=== PATIENT | female | born 1950 | race Caucasian/White ===

== ENCOUNTER 2016-12-10 18:26 | Observation (INO) | payer MEDICARE ==
[~2016-12-10] VITALS: Ht 162.6 cm; Wt 67.5 kg
[~2016-12-10 18:26] MED LIST: DICY10CA52 PO; LEVO25TA7 PO; OMEP-29 PO; PRAV40TA46 PO
--- NOTE | 2016-12-10 18:27 | NUR ---
PROVIDER ORLANDO GREY IN ROOM W/ PT.
--- OUTSIDE RECORDS SUMMARY | 2016-12-10 18:28 | XMS REPORT | Referral Summary ---
Author Author [facility], Family Medicine Organization [facility] Address Unknown Phone Unavailable Care Team Providers Care Electric Furnace Operator Name Role Phone Ricardo Avelar Primary Care Physician [phone] Encounter VC Date(s): 05/05/15 - 05/05/15 [facility], [address] [place] [address] Discharge Diagnosis: Immunization due Discharge Disposition: 01-Home or Self Care Attending Physician: Coco Mckeon MD Admitting Physician: Coco Mckeon MD Vital Signs No data available for this section Problem List Condition Effective Dates Status Health Status Informant Anemia(Confirmed) Active Arthritis(Confirmed) Active Depression(Confirmed Active ) Gallbladder Active disease(Confirmed) Esophageal Active reflux(Confirmed) Hx of adenomatous 2013 Active colonic polyps, history of irritable bowel syndrome(Confirmed) Hyperlipidemia(Confi Active rmed) Hypothyroidism(Confi Active rmed) Irritable bowel Active syndrome (IBS)(Confirmed) Pure Active hypercholesterolemia (Confirmed) Allergies, Adverse Reactions, Alerts No Known Medication Allergies Medications aspirin 81 mg, Oral, Daily, 0 Refill(s) Start Date: 08/16/14 Status: Ordered biotin Oral, Daily, 0 Refill(s) Start Date: 08/16/14 Status: [facility] caps, Oral, Daily, 0 Refill(s) Start Date: 08/16/14 Status: Ordered omeprazole 20 mg oral delayed release capsule 20 mg 1 caps, Oral, Daily, # 90 caps, 2 Refill(s), Pharmacy: [facility], 1 caps Oral Daily Start Date: 10/26/15 Status: Ordered pravastatin 40 mg oral tablet 40 mg 1 tabs, Oral, Daily, # 90 tabs, 0 Refill(s), Pharmacy: [facility], 1 tabs Oral Daily Start Date: 09/06/15 Status: Ordered Synthroid 50 mcg (0.05 mg) oral tablet 50 mcg 1 tabs, Oral, Daily, # 90 tabs, 0 Refill(s), Pharmacy: [facility], 1 tabs Oral Daily Start Date: 10/24/15 Status: Ordered Results No data available for this section Immunizations Vaccine Date Refusal Reason tetanus/diphth/pertuss (Tdap) adult/adol 03/10/09 hepatitis B adult vaccine 05/05/15 hepatitis B adult vaccine 12/01/14 hepatitis B adult vaccine 11/03/14 influenza virus vaccine, inactivated 09/01/15 influenza virus vaccine, inactivated1 08/16/14 influenza virus vaccine, live 06/23/13 influenza virus vaccine, live 08/29/12 pneumococcal 13-valent conjugate vaccine 08/16/14 pneumococcal 23-polyvalent vaccine 10/24/15 zoster vaccine live 03/10/09 1Result Comment: [08/16/2014] see scanned doc Procedures Procedure Date Related Diagnosis Body Site Mammogram 04/06/15 Colonoscopy, Tubular adenoma x2, diverticula, 09/07/13 repeat in 3 years Bone densimetry normal 05/10/11 Appendectomy Cholecystectomy gall bladder Hysterectomy Thyroidectomy Tonsillectomy Social History Social History Type Response Smoking Status Former smoker Assessment and Plan No data available for this section
--- OUTSIDE RECORDS SUMMARY | 2016-12-10 18:28 | XMS REPORT | Referral Summary ---
Author Organization Unknown Address Unknown Phone Unavailable Care Team Providers Care Machine Puller Name Role Phone Dee Mckeon Primary Care Physician [phone] Encounter VC Date(s): 12/01/14 - 12/01/14 [facility], Ranjith, Family [address] [place] [id number] Discharge Diagnosis: Need for hepatitis B vaccination Discharge Disposition: Home or Self Care Attending Physician: Tyra Crespo APRN Admitting Physician: Tyra Crespo APRN Vital Signs No data available for this section Problem List Condition Effective Dates Status Health Status Informant Anemia(Confirmed) Active Arthritis(Confirmed) Active Depression(Confirmed Active ) Gallbladder Active disease(Confirmed) Esophageal Active reflux(Confirmed) Hx of adenomatous 2013 Active colonic polyps, history of irritable bowel syndrome(Confirmed) Hyperlipidemia(Confi Active rmed) Irritable bowel Active syndrome (IBS)(Confirmed) Pure Active hypercholesterolemia (Confirmed) Allergies, Adverse Reactions, Alerts No Known Medication Allergies Medications aspirin 81 mg, Oral, Daily, 0 Refill(s) Start Date: 08/16/14 Status: Ordered Bentyl 10 mg oral capsule 1 caps, Oral, QID, as needed Start Date: 08/11/14 Status: Ordered biotin Oral, Daily, 0 Refill(s) Start Date: 08/16/14 Status: Ordered [facility] caps, Oral, Daily, 0 Refill(s) Start Date: 08/16/14 Status: Ordered omeprazole 20 mg oral delayed release tablet 1 tabs, Oral, Daily, before a meal Special Instructions: before a meal Start Date: 08/11/14 Status: Ordered pravastatin 40 mg oral tablet 1 tabs, Oral, Daily, # 90 tabs, 3 Refill(s), Pharmacy: [facility], 1 tabs Oral Daily Start Date: 08/31/14 Status: Ordered Synthroid 25 mcg (0.025 mg) oral tablet 1 tabs, Oral, Daily, # 90 tabs, 3 Refill(s), Pharmacy: [facility], 1 tabs Oral Daily Start Date: 08/31/14 Status: Ordered Results No data available for this section Immunizations Vaccine Date Refusal Reason tetanus/diphth/pertuss (Tdap) adult/adol 03/10/09 hepatitis B adult vaccine 12/01/14 hepatitis B adult vaccine 11/03/14 influenza virus vaccine, inactivated1 08/16/14 influenza virus vaccine, live 06/23/13 influenza virus vaccine, live 08/29/12 pneumococcal 13-valent conjugate vaccine 08/16/14 zoster vaccine live 03/10/09 1Result Comment: [08/16/2014] see scanned doc Procedures Procedure Date Related Diagnosis Body Site Appendectomy Cholecystectomy Colonoscopy, Tubular adenoma x2, diverticula, repeat in 3 years gall bladder Hysterectomy Thyroidectomy Tonsillectomy Social History Social History Type Response Smoking Status Never smoker Assessment and Plan No data available for this section
--- OUTSIDE RECORDS SUMMARY | 2016-12-10 18:28 | XMS REPORT | Referral Summary ---
Author Organization Unknown Address Unknown Phone Unavailable Care Team Providers Care Community Organizer Name Role Phone Dee Mckeon Primary Care Physician [phone] Encounter VC Date(s): 11/03/14 - 11/03/14 [facility], Ranjith, Family [address] [place] [id number] Discharge Diagnosis: Need for hepatitis B vaccination [...] Daily, # 90 tabs, 3 Refill(s), Pharmacy: [facility], 1 tabs Oral Daily Start Date: 08/31/14 Status: Ordered Synthroid 25 mcg (0.025 mg) oral tablet 1 tabs, Oral, Daily, # 90 tabs, 3 Refill(s), Pharmacy: [facility], 1 tabs Oral Daily Start Date: 08/31/14 Status: Ordered Results No data available for this section Immunizations Vaccine Date Refusal Reason tetanus/diphth/pertuss (Tdap) adult/adol 03/10/09 hepatitis B adult vaccine 11/03/14 influenza virus [...]
--- OUTSIDE RECORDS SUMMARY | 2016-12-10 18:29 | XMS REPORT | Referral Summary ---
Author Author [facility], Family Medicine Organization [facility] Address Unknown Phone Unavailable Care Team Providers Care Bark Grinder Name Role Phone Ricardo Avelar Primary Care Physician [phone] Encounter Date(s): 09/04/16 - 09/04/16 [facility], [address] [place] [address]- Discharge Diagnosis: Hyperlipidemia Discharge Diagnosis: Esophageal reflux Discharge Diagnosis: Hypothyroidism Discharge Diagnosis: Encounter for immunization Discharge Diagnosis: Hyperlipidemia Discharge Disposition: 01-Home or Self Care Attending Physician: Lisa Avelar DO Admitting Physician: Lisa Avelar DO Vital Signs Most recent to 1 oldest [Reference Range]: Peripheral Pulse 80 bpm Rate [60-100 bpm] (09/04/16 8:39 AM) Blood Pressure 134/90 mmHg [90-140/60-90 mmHg] (09/04/16 8:39 AM) SpO2 96 % (09/04/16 8:39 AM) Problem List Condition Effective Dates Status Health [...] 0 Refill(s) Start Date: 08/16/14 Status: Ordered ferrous sulfate Oral, Daily, 0 Refill(s) Start Date: 09/04/16 Status: Ordered omeprazole 20 mg oral delayed release capsule 20 mg 1 caps, Oral, Daily, # 90 caps, 3 Refill(s), Pharmacy: [facility], 1 caps Oral Daily Start Date: 09/04/16 Status: Ordered simvastatin 40 mg oral tablet 40 mg 1 tabs, Oral, Bedtime (once a day), # 90 tabs, 1 Refill(s), Pharmacy: [facility], 1 tabs Oral Bedtime (once a day) Start Date: 09/04/16 Status: Ordered Synthroid 50 mcg (0.05 mg) oral tablet 50 mcg 1 tabs, Oral, Daily, # 90 tabs, 3 Refill(s), Pharmacy: [facility], 1 tabs Oral Daily Start Date: 09/04/16 Status: Ordered Results Chemistry Most recent to 1 oldest [Reference Range]: Sodium Lvl [135-144 143 mEq/L mEq/L] (09/04/16 9:11 AM) Potassium Lvl 4.3 mEq/L [3.5-5.2 mEq/L] (09/04/16 9:11 AM) Chloride [99-111 109 mEq/L mEq/L] (09/04/16 9:11 AM) CO2 [22-31 mEq/L] 24 mEq/L (09/04/16 9:11 AM) AGAP [3-20] 10 (09/04/16 9:11 AM) BUN [10-20 mg/dL] 11 mg/dL (09/04/16 9:11 AM) Glucose Lvl [70-99 103 mg/dL mg/dL] *HI* (09/04/16 9:11 AM) Creatinine Lvl 0.72 mg/dL [0.57-1.11 mg/dL] (09/04/16 9:11 AM) eGFR [>60 mL/min] >60 mL/min 1 (09/04/16 9:11 AM) Calcium Lvl 9.1 mg/dL [8.9-10.5 mg/dL] (09/04/16 9:11 AM) Albumin Lvl [3.4-4.8 3.9 gm/dL gm/dL] (09/04/16 9:11 AM) Total Protein 6.3 gm/dL [6.0-7.6 gm/dL] (09/04/16 9:11 AM) Globulin [1.8-4.0 2.4 gm/dL gm/dL] (09/04/16 9:11 AM) ALT [0-55 U/L] 19 U/L (09/04/16 9:11 AM) AST [5-34 U/L] 12 U/L (09/04/16 9:11 AM) Alk Phos [40-150 90 U/L U/L] (09/04/16 9:11 AM) Bili Total [0.2-1.2 0.4 mg/dL mg/dL] (09/04/16 9:11 AM) 1Result Comment: Multiply eGFR results by 1.21 for race. Immunizations Vaccine Date Refusal Reason tetanus/diphth/pertuss (Tdap) adult/adol 03/10/09 hepatitis B adult vaccine 05/05/15 hepatitis B adult vaccine 12/01/14 hepatitis B adult vaccine 11/03/14 influenza virus vaccine, inactivated 09/04/16 influenza virus vaccine, inactivated 09/01/15 influenza virus [...] Smoking Status Former smoker Assessment and Plan Extracted from: Title: Ambulatory Patient Education Author: Lisa Avelar DO Date: Preventive Medicine Fat and Cholesterol Restricted Diet High levels of fat and cholesterol in your blood may lead to various health problems, such as diseases of the heart, blood vessels, gallbladder, liver, and pancreas. Fats are concentrated sources of energy that come in various forms. Certain types of fat, including saturated fat, may be harmful in excess. Cholesterol is a substance needed by your body in small amounts. Your body makes all the cholesterol it needs. Excess cholesterol comes from the food you eat. When you have high levels of cholesterol and saturated fat in your blood, health problems can develop because the excess fat and cholesterol will gather along the triana of your blood vessels, causing them to narrow. Choosing the right foods will help you control your intake of fat and cholesterol. This will help keep the levels of these substances in your blood within normal limits and reduce your risk of disease. WHAT IS MY PLAN? Your health care provider recommends that you: Get no more than % of the total calories in your daily diet from fat. Limit your intake of saturated fat to less than % of your total calories each day. Limit the amount of cholesterol in your diet to less than mg per day. WHAT TYPES OF FAT SHOULD I CHOOSE? Choose healthy fats more often. Choose monounsaturated and polyunsaturated fats, such as olive and canola oil, flaxseeds, walnuts, almonds , and seeds. Eat more omega-3 fats. Good choices include salmon, mackerel, sardines, tuna, flaxseed oil, and ground flaxseeds. Aim to eat fish at least two times a week. Limit saturated fats. Saturated fats are primarily found in animal products, such as meats, butter, and cream. Plant sources of saturated fats include palm oil, palm kernel oil, and coconut oil. Avoid foods with partially hydrogenated oils in them. These contain trans fats. Examples of foods that contain trans fats are stick margarine, some tub margarines, cookies, crackers, and other baked goods. WHAT GENERAL GUIDELINES DO I NEED TO FOLLOW? These guidelines for healthy eating will help you control your intake of fat and cholesterol: Check food labels carefully to identify foods with trans fats or high amounts of saturated fat. Fill one half of your plate with vegetables and green salads. Fill one fourth of your plate with whole grains. Look for the word "whole " as the first word in the ingredient list. Fill one fourth of your plate with lean protein foods. Limit fruit to two servings a day. Choose fruit instead of juice. Eat more foods that contain soluble fiber. Examples of foods that contain this type of fiber are apples, broccoli, carrots, beans, peas, and barley. Aim to get 2030 g of fiber per day. Eat more home-cooked food and less restaurant, buffet, and fast food. Limit or avoid alcohol. Limit foods high in starch and sugar. Limit fried foods. Cook foods using methods other than frying. Baking, boiling, grilling, and broiling are all great options. Lose weight if you are overweight. Losing just 510% of your initial body weight can help your overall health and prevent diseases such as diabetes and heart disease. WHAT FOODS CAN I EAT? Grains Whole grains, such as whole wheat or whole grain breads, crackers, cereals, and pasta. Unsweetened oatmeal, bulgur, barley, quinoa, or brown rice. [place] or whole wheat flour tortillas. Vegetables Fresh or frozen vegetables (raw, steamed, roasted, or grilled). Green salads. Fruits All fresh, canned (in natural juice), or frozen fruits. Meat and Other Protein Products Ground beef (85% or leaner), grass-fed beef, or beef trimmed of fat. Skinless chicken or turkey. Ground chicken or turkey. Pork trimmed of fat. All fish and seafood. Eggs. Dried beans, peas, or lentils. Unsalted nuts or seeds. Unsalted canned or dry beans. Dairy Low-fat dairy products, such as skim or 1% milk, 2% or reduced-fat cheeses, low- fat ricotta or cottage cheese, or plain low-fat yogurt. Fats and Oils Tub margarines without trans fats. Light or reduced-fat mayonnaise and salad dressings. Avocado. [place], canola, sesame, or safflower oils. Natural peanut or almond butter (choose ones without added sugar and oil). The items listed above may not be a complete list of recommended foods or beverages. Contact your dietitian for more options. WHAT FOODS ARE NOT RECOMMENDED? Grains White bread. White pasta. White rice. Cornbread. Bagels, pastries, and croissants. Crackers that contain trans fat. Vegetables White potatoes. [place]. Creamed or fried vegetables. Vegetables in a cheese sauce. Fruits Dried fruits. Canned fruit in light or heavy syrup. Fruit juice. Meat and Other Protein Products Fatty cuts of meat. Ribs, chicken wings, ribeiro, sausage, bologna, salami, chitterlings, fatback, hot dogs, bratwurst, and packaged luncheon meats. Liver and organ meats. Dairy Whole or 2% milk, cream, [id number], and cream cheese. Whole milk cheeses. Whole-fat or sweetened yogurt. Full-fat cheeses. Nondairy creamers and whipped toppings. Processed cheese, cheese spreads, or cheese curds. Sweets and Desserts [place] syrup, sugars, honey, and molasses. Candy. Jam and jelly. Syrup. Sweetened cereals. Cookies, pies, cakes, donuts, muffins, and ice cream. Fats and Oils Butter, stick margarine, lard, shortening, ghee, or ribeiro fat. Coconut, palm kernel, or palm oils. Beverages Alcohol. Sweetened drinks (such as sodas, lemonade, and fruit drinks or punches) . The items listed above may not be a complete list of foods and beverages to avoid. Contact your dietitian for more information. This information is not intended to replace advice given to you by your health care provider. Make sure you discuss any questions you have with your health care provider. Document Released: 09/16/2006 Document Revised: 10/07/2015 Document Reviewed: [employer] Patient Education 2016 [employer] No follow up information was provided. Extracted from: Title: Office Visit Note Author: Lisa Avelar DO Date: 09/04/16 Assessment/Plan Encounter for immunization, Need for influenza vaccination Given today. Ordered: Office Visit Level 4 Est 32620 Esophageal reflux Continue current regimen. Ordered: Office Visit Level 4 Est 09846 Hyperlipidemia, Hyperlipidemia, Hyperlipidemia CMP today,we will try her on simvastatin 40 mg to see if she tolerates this better than pravastatin. She'll return to clinic in 6 months for reevaluation and lab work. Ordered: Comprehensive Metabolic Panel Office Visit Level 4 Est 48008 Hypothyroidism Not yet due for lab work, we will repeat when she returns to clinic in 6 months. Ordered: Office Visit Level 4 Est 71364
--- OUTSIDE RECORDS SUMMARY | 2016-12-10 18:29 | XMS REPORT | Referral Summary ---
Author Author [facility] Organization [facility] Address Unknown Phone Unavailable Care Team Providers Care Strategy Associate Name Role Phone Ricardo Avelar Primary Care Physician [phone] Encounter Date(s): 09/01/15 - 09/01/15 [facility], [address] [place] [id number] Discharge Diagnosis: High cholesterol Discharge Diagnosis: Encounter for Medicare annual wellness exam Discharge Diagnosis: Hypothyroidism Discharge Diagnosis: Encounter for immunization Discharge Disposition: 01-Home or Self Care Attending Physician: Jenny Tian APRN Admitting Physician: Jenny Tian APRN Vital Signs Most recent to 1 oldest [Reference Range]: Temperature Tympanic 36.7 degC [36.6-38.1 degC] (09/01/15 9:33 AM) Peripheral Pulse 76 bpm Rate [60-100 bpm] (09/01/15 9:33 AM) Blood Pressure 106/68 mmHg [90-140/60-90 mmHg] (09/01/15 9:33 AM) SpO2 97 % (09/01/15 9:33 AM) Problem List Condition Effective Dates Status [...] 0 Refill(s) Start Date: 08/16/14 Status: Ordered [facility] caps, Oral, Daily, 0 Refill(s) Start Date: 08/16/14 Status: Ordered omeprazole 20 mg oral delayed release tablet 20 mg 1 tabs, Oral, Daily, before a meal, # 90 tabs, 3 Refill(s), [facility], 1 tabs Oral Daily,Instr:before a meal Start Date: 03/14/15 Status: Ordered pravastatin 40 mg oral tablet 1 tabs, Oral, Daily, # 90 tabs, 3 Refill(s), Pharmacy: [facility], 1 tabs Oral Daily Start Date: 08/31/14 Status: Ordered Synthroid 25 mcg (0.025 mg) oral tablet 1 tabs, Oral, Daily, # 90 tabs, 3 Refill(s), Pharmacy: [facility], 1 tabs Oral Daily Start Date: 08/31/14 Status: Ordered Results Chemistry Most recent to 1 oldest [Reference Range]: Sodium Lvl [135-144 141 mEq/L mEq/L] (09/01/15 10:16 AM) Potassium Lvl 4.1 mEq/L [3.5-5.2 mEq/L] (09/01/15 10:16 AM) Chloride [99-111 109 mEq/L mEq/L] (09/01/15 10:16 AM) CO2 [22-31 mEq/L] 24 mEq/L (09/01/15 10:16 AM) AGAP [3-20] 8 (09/01/15 10:16 AM) BUN [10-20 mg/dL] 12 mg/dL (09/01/15 10:16 AM) Glucose Lvl [70-99 100 mg/dL mg/dL] *HI* (09/01/15 10:16 AM) Creatinine Lvl 0.74 mg/dL [0.57-1.11 mg/dL] (09/01/15 10:16 AM) eGFR [>60 mL/min] >60 mL/min 1 (09/01/15 10:16 AM) Calcium Lvl 9.2 mg/dL [8.9-10.5 mg/dL] (09/01/15 10:16 AM) Albumin Lvl [3.4-4.8 3.9 gm/dL gm/dL] (09/01/15 10:16 AM) Total Protein 6.5 gm/dL [6.2-8.1 gm/dL] (09/01/15 10:16 AM) Globulin [1.8-4.0 2.6 gm/dL gm/dL] (09/01/15 10:16 AM) ALT [0-55 U/L] 25 U/L (09/01/15 10:16 AM) AST [5-34 U/L] 15 U/L (09/01/15 10:16 AM) Alk Phos [40-150 87 U/L U/L] (09/01/15 10:16 AM) Bili Total [0.2-1.2 0.4 mg/dL mg/dL] (09/01/15 10:16 AM) Chol [0-199 mg/dL] 248 mg/dL *HI* (09/01/15 10:16 AM) Trig [0-149 mg/dL] 155 mg/dL *HI* (09/01/15 10:16 AM) HDL [40-84 mg/dL] 44 mg/dL (09/01/15 10:16 AM) LDL [0-130 mg/dL] 173 mg/dL *HI* (09/01/15 10:16 AM) VLDL Cholesterol 31 mg/dL [0-28 mg/dL] *HI* (09/01/15 10:16 AM) Cardiac Risk 5.6 [0.0-5.0] *HI* (09/01/15 10:16 AM) T3 Free [1.7-3.7 2.5 pg/mL pg/mL] (09/01/15 10:16 AM) TSH with Reflex Free 2.56 T4 [0.35-4.94] (09/01/15 10:16 AM) 1Result Comment: Multiply eGFR results by [...] Date Related Diagnosis Body Site Mammogram 04/06/15 Appendectomy Cholecystectomy Colonoscopy, Tubular adenoma x2, diverticula, repeat in 3 years gall bladder Hysterectomy Thyroidectomy Tonsillectomy Social History Social History Type Response Smoking Status Never smoker Assessment and Plan No data available for this section
--- OUTSIDE RECORDS SUMMARY | 2016-12-10 18:29 | XMS REPORT | Referral Summary ---
Author Author [facility] Organization [facility] Address Unknown Phone Unavailable Care Team Providers Care Computer Engineering Technician Name Role Phone Ricardo Avelar Primary Care Physician [phone] Encounter VC Date(s): 10/24/15 - 10/24/15 [facility] [address] [place] [id number] Discharge Diagnosis: Hypothyroidism Discharge Diagnosis: Esophageal reflux Discharge Diagnosis: Hyperlipidemia Discharge Disposition: 01-Home or Self Care Attending Physician: Lisa Aevlar DO Admitting Physician: Lisa Avelar DO Vital Signs Most recent to 1 oldest [Reference Range]: Peripheral Pulse 84 bpm Rate [60-100 bpm] (10/24/15 9:57 AM) Respiratory Rate 18 br/min [14-20 br/min] (10/24/15 9:57 AM) Blood Pressure 140/80 mmHg [90-140/60-90 mmHg] (10/24/15 9:57 AM) SpO2 97 % (10/24/15 9:57 AM) Problem List Condition Effective Dates Status [...] Daily, before a meal, # 90 tabs, 0 Refill(s), Pharmacy: [facility], 1 tabs Oral Daily,Instr:before a meal Start Date: 10/24/15 Status: Ordered pravastatin 40 mg oral tablet 40 mg 1 tabs, Oral, Daily, # 90 tabs, 0 Refill(s), Pharmacy: [facility], 1 tabs Oral Daily Start Date: 09/06/15 Status: Ordered Synthroid 50 mcg (0.05 mg) oral tablet 50 mcg 1 tabs, Oral, Daily, # 90 tabs, 0 Refill(s), Pharmacy: [facility], 1 tabs Oral Daily [...] smoker Assessment and Plan Extracted from: Title: Office Visit Note Author: Lisa Avelar DO Date: 10/24/15 Assessment/Plan Esophageal reflux Advised patient that if she has been tried off of omeprazoleand failedit is certainly reasonable to continue this medication. Patient voiced understanding. Ordered: Office Visit Level 4 Est 22848 Hyperlipidemia We will get an FLP in 6 weeks when we get a thyroid function test. Ordered: Lipid Panel Office Visit Level 4 Est 19813 Hypothyroidism TSH in 6 weeks after increased to 50 g. I did discuss with patient that if this is too high we could go to a hybrid of 25 and 50 g doses alternating to see if this gets her better control. Return to clinic will be based on results. Ordered: Office Visit Level 4 Est 99698 TSH with Reflex Free T4 Immunization due Orders: levothyroxine, 50 mcg 1 tabs, Oral, Daily, # 90 tabs, 0 Refill(s), Pharmacy: [facility], 1 tabs Oral Daily omeprazole, 20 mg 1 tabs, Oral, Daily, before a meal, # 90 tabs, 0 Refill(s), Pharmacy: [facility], 1 tabs Oral Daily,Instr:before a meal
--- NOTE | 2016-12-10 18:41 | ERPDOC ---
Departure Disposition Decision Date: Dec 10, 2016 Disposition Decision Time: 20:27 (VANIA PARSONS APRN) Disposition: 02 TO OBS [facility] Impression Impression (VANIA PARSONS APRN) Impression: Primary Impression: Chest pain Chest pain type: unspecified Qualified Codes: R07.9 - Chest pain, unspecified Severity: Moderate (VANIA PARSONS APRN) Condition: Stable Seen By: Mid-level only (VANIA PARSONS APRN) Referrals: GEORGI HORNE MD (PCP) Problems/Meds/Labs Reviewed?: Yes Medications reviewed and manag: Yes (VANIA PARSONS APRN) Follow up care ordered?: Yes Mental Status: Alert (VANIA PARSONS APRN) HPI - Chest Pain General Stated Complaint: CHEST PAIN Time Seen by Provider: 18:27 Source: patient Exam Limitations: no limitations (VANIA PARSONS APRN) Time Seen by Provider: 18:27 (REBECCA DEVINE MD) HPI - Chest Pain Initial Comments She was at home today and was cooking dinner. Had onset of left arm pain that radiates up to her left jaw. She was feeling like her heart was pounding and like she was going to pass out. This lasted for about 15 minutes and she feels like all her symptoms are gone at this time. She did feel a little diaphoretic with this episode as well. She has had a stress test in the past but it was several years ago. Has never had a heart cath. Occurred At: home Onset/Timing: Rapid Duration: 1/2 hour Activities at Onset/Context: other (While cooking dinner) Location: other (Left arm and jaw) Quality: sharp Associated Symptoms: diaphoresis, dizziness, nausea/vomiting (nauseated earlier today), DENIES: abdominal pain, back pain, edema, fast HR, fatigue, fever/chills, headache, heartburn, irregular HR, rash, shortness of breath, slow HR, swelling/lump in chest, syncope, weakness Chest Pain Radiation: jaw, arms (left arm) Nitro Today/Relief: no nitro taken today Aspirin Treatment Today: unknown Prior Chest Pain/Cardiac Jluis: stress test Hx of Similar Symptoms: No (VANIA PARSONS APRN) Allergies: Coded Allergies: No Known Allergies (Unverified , 09/04/13) Past History Past Medical History Metabolic: hypercholesterolemia, hypothyroidism (NOLD,VANIA N ROLL FILLER) Family History Family History: Negative (NOLD,VANIA N ROLL FILLER) Vaccines Hx Influenza Vaccination: Yes (FALL 2012) Hx Pneumococcal Vaccination: No (NOLD,VANIA N ROLL FILLER) Social History Smoking Status: Never smoker Substance Use Type: does not use Alcohol Intake: none (NOLD,VANIA N ROLL FILLER) Review of Systems Constitutional Constitutional: DENIES: chills, dizziness, fatigue, fever, weakness (NOLD, VANIA N ROLL FILLER) Eyes Vision: DENIES: blurring, double vision (NOLD,VANIA N ROLL FILLER) ENMT Ears: DENIES: drainage, pain Sinuses: DENIES: congestion, rhinorrhea Mouth/Throat: DENIES: painful swallowing, scratchy throat, sore throat (NOLD, VANIA N ROLL FILLER) Cardiovascular Cardiac: DENIES: chest pain, dyspnea on exertion, orthopnea Rhythm/Rate: DENIES: irregular beat, palpitations Vascular: DENIES: pedal edema, unilateral swelling (NOLD,VANIA N ROLL FILLER) Pulmonary Respiratory: DENIES: cough, dyspnea, sputum, tachypnea (NOLD,VANIA N ROLL FILLER) GI Upper Abdomen: nausea, DENIES: pain, vomiting Lower Abdomen: DENIES: constipation, diarrhea, pain (NOLD,VANIA N ROLL FILLER) Integumentary Skin: DENIES: rash (NOLD,VANIA N ROLL FILLER) Neurological General: DENIES: headache, numbness, tingling, weakness (NOLD,VANIA N ROLL FILLER) Physical Exam General General Nourishment: well nourished, well developed, appears stated age, no acute distress, adult General Body Habitus: well groomed (NOLD,VANIA N ROLL FILLER) Vitals and Pain First Documented Vital Signs Date Time Temp Pulse Resp B/P Pulse Ox O2 Delivery O2 Flow Rate FiO2 12/10/16 18:29 98.0 78 20 170/100 95 12/10/16 18:45 Room Air (REBECCA DEVINE MD) Vitals and Pain Weight: Kilograms: Height (feet): Height (inches): Triage Pain Scale: (NODULCE MARIA,VANIA N ROLL FILLER) RN VS reviewed by Provider: Yes (VANIA PARSONS APRN) Normal Exams: Neck: Full range of motion, without adenopathy, JVD, bruits or thyromegaly Chest/Resp: Clear all lawler, with good airflow, and symmetry bilaterally CV: Regular rate and rhythm, without murmur or gallop, Pulses 2+ all extremities, capillary refill, <2 seconds all ext., no pedal edema noted Abdomen: Bowel sounds positive, soft, non-tender, non-distended, no hepatosplenomegaly, masses or bruits noted Lymphatic: No lymphadenopathy, or lymphedema noted Integumentary: No rashes, hives, or bruising noted Neurologic: Patient is alert, and oriented Psychiatric: Patient exhibits, appropriate attention, emotion and affect (VANIA PARSONS APRN) Differential Diagnoses Considering: Acute ID, Anxiety/Panic, Angina, Costochondritis, GERD, Pneumonia , Muscle Spasm (VANIA PARSONS APRN) Progress Results/Orders Orders Procedure Category Date Status Time EKG EKG 12/10/16 Taken Cbc W/Auto LAB 12/10/16 Complete Diff-Reflex Manual Bmp - Basic Metabolic LAB 12/10/16 Complete Panel Troponin I W LAB 12/10/16 Complete Hemolysis Index Iv Lock (Ed Only) EDM 12/10/16 Transmitted 18:37 Chest 1 View RAD 12/10/16 Taken Orthostatic Bp/Pulse EDM 12/10/16 Transmitted 18:37 Ua, Dip Wreflex LAB 12/10/16 Complete Microsc & Manager Produce 20:09 Telemetry [facility] 12/10/16 In Process 20:21 Normal Saline (Normal PHA 12/10/16 In Process Saline Iv) 20:30 Place In Facility As: ADMIT 12/10/16 Transmitted 20:26 Troponin I W LAB 12/11/16 Complete Hemolysis Index 01:00 Troponin I W LAB 12/11/16 Logged Hemolysis Index 07:00 Cardiac Diet DIET 12/11/16 Transmitted Breakfast Lipid Panel - Batch LAB 12/11/16 Complete 01:00 Orthostatic Vitals PATRIA 12/11/16 In Process Signs 00:19 Tsh - Thyroid Stim LAB 12/11/16 In Process Hormone 01:00 Magnesium LAB 12/11/16 In Process 01:00 Acetaminophen PHA 12/11/16 Logged (Tylenol Regular 00:45 Mc Vital Signs, Per PATRIA 12/11/16 In Process Policy 00:00 Nitroglycerin PHA 12/11/16 Logged (Nitrostat) 01:00 Ondansetron Inj PHA 12/11/16 Logged (Zofran) 01:00 Compression Type Scd/ PATRIA 12/11/16 In Process Jose Juan Hose 01:00 (REBECCA DEVINE MD) Lab Results Laboratory Tests Test 12/10/16 18:50 12/10/16 20:11 12/11/16 00:42 White Blood Count 5.0T/MM3 Red Blood Count 4.61M/MM3 Hemoglobin 12.4GM/DL Hematocrit 39.4% Mean Corpuscular Volume 85.5UM3 Mean Corpuscular Hemoglobin 26.9UUG Mean Corpuscular Hemoglobin Concent 31.5GM/DL RDW Standard Deviation 59.6FL Platelet Count 242T/MM3 Mean Platelet Volume 10.7UM3 Immature Granulocyte % (Auto) 0.0% Neutrophils (%) (Auto) 51.7% Lymphocytes (%) (Auto) 36.3% Monocytes (%) (Auto) 9.0% Eosinophils (%) (Auto) 2.2% Basophils (%) (Auto) 0.8% Absolute Immature Granulocyte (auto 0.00T/MM3 Absolute Neutrophils (auto) 2.6T/MM3 Absolute Lymphocytes (auto) 1.8T/MM3 Absolute Monocytes (auto) 0.5T/MM3 Absolute Eosinophils (auto) 0.1T/MM3 Absolute Basophils (auto) 0.0T/MM3 Turbidity < 20 Sodium Level 144MEQ/L Potassium Level 4.2MEQ/L Chloride Level 109MEQ/L Carbon Dioxide Level 24MEQ/L Anion Gap 11MEQ/L Blood Urea Nitrogen 12.0MG/DL Creatinine 0.6MG/DL Glomerular Filtration Rate Calc 99 BUN/Creatinine Ratio 20RATIO Glucose Level 99MG/DL Calculated Osmolality 277MOSM/KG Calcium Level 8.7MG/DL Icterus Index < 2 Troponin I < 0.012ng/ml < 0.012ng/ml Chemistry Specimen Hemolysis 105 < 15 Urine Collection Type Cleancatch-midstream Urine Color Yulia Urine Turbidity Clear Urine pH 6.5 Urine Specific [place] 1.010 Urine Protein Negative Urine Glucose (UA) Negative Urine Ketones Negative Urine Blood Trace-intact Urine Nitrite Negative Urine Bilirubin Negative Urine Urobilinogen 0.2EU/DL Urine Leukocyte Esterase Trace Urinalysis Comment Microscopic not ind. Magnesium Level 2.0MG/DL Triglycerides Level 164MG/DL Cholesterol Level 223MG/DL LDL Cholesterol, Calculated 151.2 VLDL Cholesterol 32.8MG/DL HDL Cholesterol Direct 39MG/DL Cholesterol/HDL Ratio 5.7RATIO Thyroid Stimulating Hormone (TSH) Pending (REBECCA DEVINE MD) Progress Progress CBC, BMP, and troponin today are normal. Chest xray is clear. She did get up to the bathroom and had return of the dizziness but otherwise has continued to deny symptoms while in [place]. She does have a sister who had bypass surgery in her 30s. Is a non smoker. She has a HEART score for major cardiac event of 4 which places her at moderate risk. Did discuss findings with Mike with Dr Saavedra. Given her symptoms and the onset of symptoms within the last 2 hours will admit for serial troponin. (VANIA PARSONS APRN) VANIA PARSONS APRN Dec 10, 2016 18:41 REBECCA DEVINE MD Dec 11, 2016 04:38
[2016-12-10] MEDS ORDERED: MULT1TAB69 PO (18:45)
[2016-12-10] MEDS ORDERED: LEVO50TA11 PO (18:45)
[2016-12-10] MEDS ORDERED: OMEP20CA10 PO (18:45)
[2016-12-10] MEDS ORDERED: ASPI1TAB72 PO (18:45)
[2016-12-10] MEDS ORDERED: ASPI-557 PO (18:45)
[2016-12-10] MEDS ORDERED: FERR325C PO (18:45)
--- NOTE | 2016-12-10 19:01 | NUR ---
XRAY XRAY IN ROOM W/ PT.
[2016-12-10 19:18] LABS: BASOPHILS % (AUTO) 0.8 % (0-2); EOSINOPHILS # (AUTO) 0.1 T/MM3 (0-0.5); EOSINOPHILS % (AUTO) 2.2 % (0-4); HCT - HEMATOCRIT 39.4 % (36-46); HGB - HEMOGLOBIN 12.4 GM/DL (12-16); LYMPHOCYTES # (AUTO) 1.8 T/MM3 (1-4.8); LYMPHOCYTES % (AUTO) 36.3 % (23-45); MEAN CORPUSCULAR HGB 26.9 UUG (26-34); MEAN CORPUSCULAR HGB CONC(MCHC 31.5 GM/DL (31-37); MEAN CORPUSCULAR VOLUME 85.5 UM3 (80-100); MEAN PLATELET VOLUME 10.7 UM3 (9.4-12.4); MONOCYTES # (AUTO) 0.5 T/MM3 (0-0.8); NEUTROPHILS #(AUTO)-ABSOLUTE 2.6 T/MM3 (1.8-7.7); NEUTROPHILS % (AUTO) 51.7 % (33-66); RED BLOOD COUNT 4.61 M/MM3 (4.00-5.20)
[2016-12-10 19:28] LABS: ANION GAP 11 MEQ/L (5-15); BUN/CREATININE RATIO 20 RATIO (6-26); CALCIUM 8.7 MG/DL (8.4-10.2); CHLORIDE 109 MEQ/L (98-107); CO2 - CARBON DIOXIDE 24 MEQ/L (22-30); CREATININE 0.6 MG/DL (0.7-1.2); GLOMERULAR FILTRATION RATE 99; GLUCOSE 99 MG/DL (65-110); POTASSIUM 4.2 MEQ/L (3.6-5); SODIUM 144 MEQ/L (134-144)
[2016-12-10 20:17] LABS: BLOOD, URINE TRACE-INTACT (NEGATIVE); COLOR,URINE AMBER (YELLOW); LEUKOCYTE ESTERASE ,URINE TRACE (NEGATIVE); NITRITE,URINE NEGATIVE (NEGATIVE); UROBILINOGEN,URINE 0.2 EU/DL (NORMAL)
[2016-12-10] MEDS ORDERED: NORMAL SALINE 1,000 ML IV ONE (20:30)
[2016-12-10 20:45] VITALS: Ht 162.6 cm; Wt 67.5 kg
--- NOTE | 2016-12-10 20:52 | NUR ---
REPORT REPORT GIVEN TO VEENA SHAW RM 145.
--- NOTE | 2016-12-10 21:08 | NUR ---
ADMIT: PT ADMITTED BY CART TO ROOM 145 ACCOMPANIED BY SIGNIFICANT OTHER, ON RA, DENIES SOA OR PAIN, VS STABLE. UP TO BATHROOM WITH STANDBY ASSIST. WILL CONTINUE TO MONITOR.
[2016-12-10 21:15] VITALS: BP 147/78; PULSE 74; RESP 14; TEMP 98.6; O2SAT 98
[2016-12-10 21:35] VITALS: PULSE 67
--- NOTE | 2016-12-10 21:44 | NUR ---
DEPART PT LEFT ER AND TRANSFERED ADMIT TO MEDICAL UNIT ROOM 145 ALERT, VIA CART, IV NS 100/HR, VS CHARTED IN NO ACUTE DISTRESS. AND PT CARE XFERED TO VEENA SHAW W/O CHANGE.
[2016-12-10 23:42] VITALS: BP 142/85; PULSE 67; RESP 10; TEMP 97.4; O2SAT 98
[2016-12-11] MEDS ORDERED: ACETAMINOPHEN 325 MG TABLET PO PRN (00:45)
[2016-12-11 00:46] VITALS: BP 138/89; PULSE 68
[2016-12-11 00:47] VITALS: BP 161/90; PULSE 72
[2016-12-11 00:49] VITALS: BP 154/89; PULSE 75
[2016-12-11] MEDS ORDERED: NITROGLYCERIN 0.4 MG SUBLINGUAL TABLET SL PRN (01:00)
[2016-12-11] MEDS ORDERED: ONDANSETRON 4mg/2ml INJECTION IM PRN (01:00)
--- NOTE | 2016-12-11 02:12 | NUR ---
ORDERS: PT HAD NO ORDERS IN EXCEPT FOR NORMAL SALINE IN THE EMAR. HAD DR. MALLORY'S NIGHT STAFF PAGED (MARK ANTHONY LONG). NO CALL BACK, SO HAD HER PAGED AGAIN, AND WAS ABLE TO SPEAK WITH MARK ANTHONY LONG. WE DISCUSSED THE PT AND MERCEDES GAVE ME ORDERS TO PUT IN, WHICH I DID (SEE ORDER HISTORY).
[2016-12-11 04:04] LABS: LDL CHOLESTEROL,CALCULATED 151.2 (66-159); RISK FACTOR 5.7 RATIO (0-4.0); VLDL CHOLESTEROL 32.8 MG/DL (0-28)
[2016-12-11 04:45] LABS: THYROID STIM HORMONE-TSH 2.66 MIU/L (0.47-4.68)
--- NOTE | 2016-12-11 06:18 | NUR ---
SHIFT SUMMARY: PT A&OX3, PLEASANT, AND COOPERATIVE. PT 'S SIGNIFICANT OTHER CAME WITH HER ROOM WHEN ARRIVING TO THE MEDICAL UNIT, HE THEN LEFT AFTER AN HOUR. PT SLEPT WELL DURING THE NIGHT, ON RA, DENIES N/V, DENIES PAIN. PT IS UP TO THE BATHROOM WITH 1-STAND BY ASSIST PT STATES AMBULATING MAKES HER DIZZY. CALL LIGHT WITHIN REACH, BED ALARM ON..
[2016-12-11 07:19] VITALS: BP 141/78; PULSE 63; RESP 14; TEMP 96.3; O2SAT 98
[2016-12-11 07:24] VITALS: PULSE 62
--- NOTE | 2016-12-11 07:38 | DI ---
EXAM: CHEST 1 VIEW LOCATION OF DICTATION: [place] HISTORY: ITS.REASON: chest pain COMPARISON: No prior studies available for comparison. FINDINGS: The heart size is normal. The mediastinal configuration is within normal limits. A moderate to large sized hiatal hernia is suspected. There are no consolidating opacities or pleural effusions. There is no pneumothorax. The osseous structures are within normal limits for the patient's age. IMPRESSION: 1. The heart size is normal. 2. The lungs are clear. 3. Moderate to large sized hiatal hernia suspected. .
--- NOTE | 2016-12-11 09:29 | NUR ---
AMINAH CM IN TO VISIT PATIENT, SHE IS A&O. MALE IS PRESENT AT THE BEDSIDE. PATIENT PLANS TO DISCHARGE HOME WHERE SHE LIVES WITH THE MALE PRESENT IN ROOM, SHE DENIES ANY DISCHARGE NEEDS. CM CONTACT INFORMATION PROVIDED. DPOA INFORMATION WAS GIVEN, SHE IS UNSURE WHETHER SHE HAS AN ACTIVE DPOA BUT WILL CHECK AFTER DISCHARGE. Addendum: 12/11/16 at 0930 by SHELDON BARBOUR RN Amended: Links added.
--- NOTE | 2016-12-11 09:36 | NUR ---
DM Screen Diet Order: Cardiac diet Lab: Glucose 99 No hx of diabetes; pt not prescribed DM Meds therefore DM screen is a false positive RD available at ext [phone]
--- NOTE | 2016-12-11 10:26 | NUR ---
Status Patient alert and oriented. Denies dizziness while up. Denies SOA/chest pressure/pain. Up ad mariajose in room.
--- NOTE | 2016-12-11 10:47 | HPPDOC ---
LENA KILGORE [facility] 12/11/16 1005: HPI - Adult Date DATE: 12/11/16 TIME: 10:02 General Date of Admission Date of Admission: Dec 10, 2016 at 20:26 History of Present Illness Malini is a 66 year old female who was at home cooking dinner yesterday when she had onset of left arm pain that radiates up to her left jaw. She felt like her heart was pounding and like she was going to pass out. This lasted for about 15 minutes and she did feel a little diaphoretic with this episode as well. She has had a stress test in the past but it was several years ago but she has never had a heart cath. She does have a sister who had bypass surgery in her 30s Past Medical History Past Medical History Metabolic: hypercholesterolemia, hypothyroidism Cardiac: DENIES: A-fib, CAD, CHF, SC, angina Neurological: DENIES: CVA Surgical History Cardiac: DENIES: cardiac bypass, cardiac cath, cardiac stent, pacemaker, radio ablation, valve replacement Current Medications Home Meds Active Scripts Ubidecarenone (Coenzyme Q10) 200 Mg Capsule, 100 MG PO BID for 30 Days, #30 CAP Prov:LENA KILGORE KAI 12/11/16 Nitroglycerin (Nitrostat) 0.4 Mg Tablet, 0.4 MG SL Q5MIN Y for CHEST PAIN for 25 Days, #25 TAB Prov:LENA KILGORE [facility]ARMAC[facility] CASHIER 12/11/16 Atorvastatin Calcium (Lipitor) 40 Mg Tablet, 40 MG PO HS for 30 Days, #30 TAB 11 Refills Prov:LENA KILGORE PHARMACY CASHIER 12/11/16 Reported Medications Aspirin/Acetaminophen/Caffeine (Excedrin Extra Strength Caplet) 1 Each Tablet, 1 TAB PO Q4H Y for PAIN 12/10/16 Aspirin (Aspir 81) 81 Mg Tablet.dr, 81 MG PO QOD 12/10/16 Ferrous Sulfate (Iron) 325 Mg Capsule.er, 325 MG PO QOD 12/10/16 Multivitamin (Multivitamins) 1 Each Tablet, 1 TAB PO DAILY 12/10/16 Omeprazole (Omeprazole) 20 Mg Capsule.dr, 20 MG PO ACB 12/10/16 Levothyroxine Sodium (Levothyroxine Sodium) 50 Mcg Tablet, 50 MCG PO ACB 12/10/16 Allergies: Coded Allergies: No Known Allergies (Unverified , 12/6/13) Family History FOUND: CAD (sister had bypass in her 30s) Vaccines 2016 2015 2013 Social History Smoking Status: Never smoker Substance Use Type: does not use Alcohol Intake: none Advance Directives: Yes DPOA for Healthcare Only (paperwork at home, Nino Hector) Review of Systems Constitutional: REPORTS: dizziness (yesterday evening), other (near syncope yesterday), DENIES: chills, fever Eyes General: DENIES: pain Vision: DENIES: double vision ENMT Hearing: DENIES: tinnitus Balance: DENIES: vertigo Sinuses: NOT FOUND: rhinorrhea Mouth/Throat: DENIES: sore throat Cardiovascular DENIES: chest pain, dyspnea on exertion, murmur, orthopnea Rhythm/Rate: palpitations Vascular: DENIES: pedal edema Pulmonary Respiratory: dyspnea, DENIES: cough, sputum GI Upper Abdomen: nausea, DENIES: vomiting Lower Abdomen: DENIES: diarrhea General: DENIES: dysuria Neurological General: numbness (left arm), syncope (near), tingling (left arm into left jaw) , DENIES: headache, seizures, weakness All Other Systems All Other Systems: Reviewed (remainder of 10-point ROS Neg.) Physical Exam General General Nourishment: well nourished, well developed, apparent age Vital Signs Vital Signs Date Time Temp Pulse Resp B/P Pulse Ox O2 Delivery O2 Flow Rate FiO2 12/11/16 07:24 62 12/11/16 07:19 96.3 14 141/78 98 Room Air Height (Feet): 5 Height (Inches): 4.00 Telemetry Rhythm: Sinus Rhythm ENMT Brief: FOUND: mucosa moist Neck Brief: NOT FOUND: JVD, carotid bruits Respiratory Brief: FOUND: clear all lawler, equal bilaterally, NOT FOUND: rales , wheezes Cardiovascular (brief) Cardiac Brief: FOUND: regular rate, regular rhythm, NOT FOUND: click, gallop, murmur, pedal edema Abdomen (brief) Abdominal Brief: FOUND: BS normo active x4, soft, NOT FOUND: tender Integumentary (brief) Integumentary Brief: FOUND: dry, pink, warm Neurologic RN Documented GCS Eye Opening: (4)Spontaneous Verbal: (5)Oriented Motor: (6)Obeys Commands Total: Psychiatric (brief) FOUND: alert, attentive, oriented Laboratory Laboratory Tests Test 12/10/16 18:50 12/10/16 20:11 12/11/16 00:42 12/11/16 06:36 White Blood Count 5.0T/MM3 Red Blood Count 4.61M/MM3 Hemoglobin 12.4GM/DL Hematocrit 39.4% Mean Corpuscular Volume 85.5UM3 Mean Corpuscular Hemoglobin 26.9UUG Mean Corpuscular Hemoglobin Concent 31.5GM/DL RDW Standard Deviation 59.6FL Platelet Count 242T/MM3 Mean Platelet Volume 10.7UM3 Immature Granulocyte % (Auto) 0.0% Neutrophils (%) (Auto) 51.7% Lymphocytes (%) (Auto) 36.3% Monocytes (%) (Auto) 9.0% Eosinophils (%) (Auto) 2.2% Basophils (%) (Auto) 0.8% Absolute Immature Granulocyte (auto 0.00T/MM3 Absolute Neutrophils (auto) 2.6T/MM3 Absolute Lymphocytes (auto) 1.8T/MM3 Absolute Monocytes (auto) 0.5T/MM3 Absolute Eosinophils (auto) 0.1T/MM3 Absolute Basophils (auto) 0.0T/MM3 Turbidity < 20 Sodium Level 144MEQ/L Potassium Level 4.2MEQ/L Chloride Level 109MEQ/L Carbon Dioxide Level 24MEQ/L Anion Gap 11MEQ/L Blood Urea Nitrogen 12.0MG/DL Creatinine 0.6MG/DL Glomerular Filtration Rate Calc 99 BUN/Creatinine Ratio 20RATIO Glucose Level 99MG/DL Calculated Osmolality 277MOSM/KG Calcium Level 8.7MG/DL Icterus Index < 2 Troponin I < 0.012ng/ml < 0.012ng/ml < 0.012ng/ml Chemistry Specimen Hemolysis 105 < 15 < 15 Urine Collection Type Cleancatch-midstream Urine Color Yulia Urine Turbidity Clear Urine pH 6.5 Urine Specific [place] 1.010 Urine Protein Negative Urine Glucose (UA) Negative Urine Ketones Negative Urine Blood Trace-intact Urine Nitrite Negative Urine Bilirubin Negative Urine Urobilinogen 0.2EU/DL Urine Leukocyte Esterase Trace Urinalysis Comment Microscopic not ind. Magnesium Level 2.0MG/DL Triglycerides Level 164MG/DL Cholesterol Level 223MG/DL LDL Cholesterol, Calculated 151.2 VLDL Cholesterol 32.8MG/DL HDL Cholesterol Direct 39MG/DL Cholesterol/HDL Ratio 5.7RATIO Thyroid Stimulating Hormone (TSH) 2.66MIU/L Laboratory Tests Test 12/10/16 18:50 12/10/16 20:11 12/11/16 00:42 12/11/16 06:36 White Blood Count 5.0T/MM3 Red Blood Count 4.61M/MM3 Hemoglobin 12.4GM/DL Hematocrit 39.4% Mean Corpuscular Volume 85.5UM3 Mean Corpuscular Hemoglobin 26.9UUG Mean Corpuscular Hemoglobin Concent 31.5GM/DL RDW Standard Deviation 59.6FL Platelet Count 242T/MM3 Mean Platelet Volume 10.7UM3 Immature Granulocyte % (Auto) 0.0% Neutrophils (%) (Auto) 51.7% Lymphocytes (%) (Auto) 36.3% Monocytes (%) (Auto) 9.0% Eosinophils (%) (Auto) 2.2% Basophils (%) (Auto) 0.8% Absolute Immature Granulocyte (auto 0.00T/MM3 Absolute Neutrophils (auto) 2.6T/MM3 Absolute Lymphocytes (auto) 1.8T/MM3 Absolute Monocytes (auto) 0.5T/MM3 Absolute Eosinophils (auto) 0.1T/MM3 Absolute Basophils (auto) 0.0T/MM3 Turbidity < 20 Sodium Level 144MEQ/L Potassium Level 4.2MEQ/L Chloride Level 109MEQ/L Carbon Dioxide Level 24MEQ/L Anion Gap 11MEQ/L Blood Urea Nitrogen 12.0MG/DL Creatinine 0.6MG/DL Glomerular Filtration Rate Calc 99 BUN/Creatinine Ratio 20RATIO Glucose Level 99MG/DL Calculated Osmolality 277MOSM/KG Calcium Level 8.7MG/DL Icterus Index < 2 Troponin I < 0.012ng/ml < 0.012ng/ml < 0.012ng/ml Chemistry Specimen Hemolysis 105 < 15 < 15 Urine Collection Type Cleancatch-midstream Urine Color Yulia Urine Turbidity Clear Urine pH 6.5 Urine Specific [place] 1.010 Urine Protein Negative Urine Glucose (UA) Negative Urine Ketones Negative Urine Blood Trace-intact Urine Nitrite Negative Urine Bilirubin Negative Urine Urobilinogen 0.2EU/DL Urine Leukocyte Esterase Trace Urinalysis Comment Microscopic not ind. Magnesium Level 2.0MG/DL Triglycerides Level 164MG/DL Cholesterol Level 223MG/DL LDL Cholesterol, Calculated 151.2 VLDL Cholesterol 32.8MG/DL HDL Cholesterol Direct 39MG/DL Cholesterol/HDL Ratio 5.7RATIO Thyroid Stimulating Hormone (TSH) 2.66MIU/L EKG SR, rate 75 Radiology DATE OF EXAM: 12/10/16 ORDERING DOCTOR: VANIA PARSONS APRN TYPE OF EXAM: CHEST 1 VIEW REASON FOR EXAM: chest pain EXAM: CHEST 1 VIEW LOCATION OF DICTATION: [place] HISTORY: ITS.REASON: chest pain COMPARISON: No prior studies available for comparison. FINDINGS: The heart size is normal. The mediastinal configuration is within normal limits. A moderate to large sized hiatal hernia is suspected. There are no consolidating opacities or pleural effusions. There is no pneumothorax. The osseous structures are within normal limits for the patient's age. IMPRESSION: 1. The heart size is normal. 2. The lungs are clear. 3. Moderate to large sized hiatal hernia suspected. Assessment & Plan Problems: (1) Chest pain Status: Acute Qualifiers: Chest pain type: unspecified Qualified Codes: R07.9 - Chest pain, unspecified (2) Mixed hyperlipidemia Status: Chronic Assessment & Plan: Unable to tolerate Statin drugs (3) Hypothyroidism Status: Chronic Qualifiers: Hypothyroidism type: unspecified Qualified Codes: E03.9 - Hypothyroidism, unspecified Assessment & Plan: Continue home thyroid medication Plan/Intensity of Service Dismiss to home. Follow up appointment on 01/01/17 at 9:30 for 24H Holter monitor and schedule outpatient stress test. Code Status Full Code Hospital Course Summary Disclaimer The hospital course summary below is not to be considered part of the above Progress Note. NICKIE MALLORY MD 12/17/16 1420: Past Medical History Current Medications Home Meds Active Scripts Ubidecarenone (Coenzyme Q10) 200 Mg Capsule, 100 MG PO BID for 30 Days, #30 CAP Prov:LENA KILGORE APRN 12/11/16 Nitroglycerin (Nitrostat) 0.4 Mg Tablet, 0.4 MG SL Q5MIN Y for CHEST PAIN for 25 Days, #25 TAB Prov:LENA KILGORE APRN 12/11/16 Atorvastatin Calcium (Lipitor) 40 Mg Tablet, 40 MG PO HS for 30 Days, #30 TAB 11 Refills Prov:LENA KILGORE APRN 12/11/16 Reported Medications Aspirin/Acetaminophen/Caffeine (Excedrin Extra Strength Caplet) 1 Each Tablet, 1 TAB PO Q4H Y for PAIN 12/10/16 Aspirin (Aspir 81) 81 Mg Tablet.dr, 81 MG PO QOD 12/10/16 Ferrous Sulfate (Iron) 325 Mg Capsule.er, 325 MG PO QOD 12/10/16 Multivitamin (Multivitamins) 1 Each Tablet, 1 TAB PO DAILY 12/10/16 Omeprazole (Omeprazole) 20 Mg Capsule.dr, 20 MG PO ACB 12/10/16 Levothyroxine Sodium (Levothyroxine Sodium) 50 Mcg Tablet, 50 MCG PO ACB 12/10/16 Allergies: Coded Allergies: No Known Allergies (Unverified , 09/04/13) Assessment & Plan Hospital Course Summary Hospital Course Summary After examining the patient I agree with the above assessment. I am involved in the formulation of the patient's plan of care. LENA KILGORE APRN Dec 11, 2016 10:05 NICKIE MALLORY MD Dec 17, 2016 14:20
--- NOTE | 2016-12-11 14:35 | DSPDOC ---
LENA KILGORE DEVELOPMENTAL WRITING INSTRUCTOR 12/11/16 1432: General Date Date DATE: 12/11/16 TIME: 14:29 Attending Physician Tavo Mallory MD Admitting Physician Tavo Mallory MD Consulting Physician Admitting Diagnosis chest pain Discharge Diagnosis palpitations Laboratory Laboratory Tests Test 12/10/16 18:50 12/10/16 20:11 12/11/16 00:42 12/11/16 06:36 White Blood Count 5.0T/MM3 Red Blood Count 4.61M/MM3 Hemoglobin 12.4GM/DL Hematocrit 39.4% Mean Corpuscular Volume 85.5UM3 Mean Corpuscular Hemoglobin 26.9UUG Mean Corpuscular Hemoglobin Concent 31.5GM/DL RDW Standard Deviation 59.6FL Platelet Count 242T/MM3 Mean Platelet Volume 10.7UM3 Immature Granulocyte % (Auto) 0.0% Neutrophils (%) (Auto) 51.7% Lymphocytes (%) (Auto) 36.3% Monocytes (%) (Auto) 9.0% Eosinophils (%) (Auto) 2.2% Basophils (%) (Auto) 0.8% Absolute Immature Granulocyte (auto 0.00T/MM3 Absolute Neutrophils (auto) 2.6T/MM3 Absolute Lymphocytes (auto) 1.8T/MM3 Absolute Monocytes (auto) 0.5T/MM3 Absolute Eosinophils (auto) 0.1T/MM3 Absolute Basophils (auto) 0.0T/MM3 Turbidity < 20 Sodium Level 144MEQ/L Potassium Level 4.2MEQ/L Chloride Level 109MEQ/L Carbon Dioxide Level 24MEQ/L Anion Gap 11MEQ/L Blood Urea Nitrogen 12.0MG/DL Creatinine 0.6MG/DL Glomerular Filtration Rate Calc 99 BUN/Creatinine Ratio 20RATIO Glucose Level 99MG/DL Calculated Osmolality 277MOSM/KG Calcium Level 8.7MG/DL Icterus Index < 2 Troponin I < 0.012ng/ml < 0.012ng/ml < 0.012ng/ml Chemistry Specimen Hemolysis 105 < 15 < 15 Urine Collection Type Cleancatch-midstream Urine Color Yulia Urine Turbidity Clear Urine pH 6.5 Urine Specific [place] 1.010 Urine Protein Negative Urine Glucose (UA) Negative Urine Ketones Negative Urine Blood Trace-intact Urine Nitrite Negative Urine Bilirubin Negative Urine Urobilinogen 0.2EU/DL Urine Leukocyte Esterase Trace Urinalysis Comment Microscopic not ind. Magnesium Level 2.0MG/DL Triglycerides Level 164MG/DL Cholesterol Level 223MG/DL LDL Cholesterol, Calculated 151.2 VLDL Cholesterol 32.8MG/DL HDL Cholesterol Direct 39MG/DL Cholesterol/HDL Ratio 5.7RATIO Thyroid Stimulating Hormone (TSH) 2.66MIU/L Laboratory Tests Test 12/10/16 18:50 12/10/16 20:11 12/11/16 00:42 12/11/16 06:36 White Blood Count 5.0T/MM3 (4.5-11.0) Red Blood Count 4.61M/MM3 (4.00-5.20) Hemoglobin 12.4GM/DL (12-16) Hematocrit 39.4% (36-46) Mean Corpuscular Volume 85.5UM3 (80-100) Mean Corpuscular Hemoglobin 26.9UUG (26-34) Mean Corpuscular Hemoglobin Concent 31.5GM/DL (31-37) RDW Standard Deviation 59.6FL (36.9-50.2) Platelet Count 242T/MM3 (130-400) Mean Platelet Volume 10.7UM3 (9.4-12.4) Immature Granulocyte % (Auto) 0.0% (0.0-0.5) Neutrophils (%) (Auto) 51.7% (33-66) Lymphocytes (%) (Auto) 36.3% (23-45) Monocytes (%) (Auto) 9.0% (0-9.0) Eosinophils (%) (Auto) 2.2% (0-4) Basophils (%) (Auto) 0.8% (0-2) Absolute Immature Granulocyte (auto 0.00T/MM3 (0.00-0.03) Absolute Neutrophils (auto) 2.6T/MM3 (1.8-7.7) Absolute Lymphocytes (auto) 1.8T/MM3 (1-4.8) Absolute Monocytes (auto) 0.5T/MM3 (0-0.8) Absolute Eosinophils (auto) 0.1T/MM3 (0-0.5) Absolute Basophils (auto) 0.0T/MM3 (0-0.2) Turbidity < 20 (0-20) Sodium Level 144MEQ/L (134-144) Potassium Level 4.2MEQ/L (3.6-5) Chloride Level 109MEQ/L (98-107) Carbon Dioxide Level 24MEQ/L (22-30) Anion Gap 11MEQ/L (5-15) Blood Urea Nitrogen 12.0MG/DL (7-17) Creatinine 0.6MG/DL (0.7-1.2) Glomerular Filtration Rate Calc 99 BUN/Creatinine Ratio 20RATIO (6-26) Glucose Level 99MG/DL (65-110) Calculated Osmolality 277MOSM/KG (261-280) Calcium Level 8.7MG/DL (8.4-10.2) Icterus Index < 2 (0-7) Troponin I < 0.012ng/ml (0-0.12) < 0.012ng/ml (0-0.12) < 0.012ng/ml (0-0.12) Chemistry Specimen Hemolysis 105 (0-25) < 15 (0-25) < 15 (0-25) Urine Collection Type Cleancatch-midstream Urine Color Yulia (YELLOW) Urine Turbidity Clear (CLEAR) Urine pH 6.5 (5.0-8.0) Urine Specific [place] 1.010 (1.015-1.025) Urine Protein Negative (NEGATIVE) Urine Glucose (UA) Negative (NEGATIVE) Urine Ketones Negative (NEGATIVE) Urine Blood Trace-intact (NEGATIVE) Urine Nitrite Negative (NEGATIVE) Urine Bilirubin Negative (NEGATIVE) Urine Urobilinogen 0.2EU/DL (NORMAL) Urine Leukocyte Esterase Trace (NEGATIVE) Urinalysis Comment Microscopic not ind. Magnesium Level 2.0MG/DL (1.6-2.3) Triglycerides Level 164MG/DL (35-135) Cholesterol Level 223MG/DL (132-199) LDL Cholesterol, Calculated 151.2 (66-159) VLDL Cholesterol 32.8MG/DL (0-28) HDL Cholesterol Direct 39MG/DL (40-60) Cholesterol/HDL Ratio 5.7RATIO (0-4.0) Thyroid Stimulating Hormone (TSH) 2.66MIU/L (0.47-4.68) Radiology DATE OF EXAM: 12/10/16 ORDERING DOCTOR: VANIA PARSONS APRN TYPE OF EXAM: CHEST 1 VIEW REASON FOR EXAM: chest pain EXAM: CHEST 1 VIEW LOCATION OF DICTATION: [place] HISTORY: ITS.REASON: chest pain COMPARISON: No prior studies available for comparison. FINDINGS: The heart size is normal. The mediastinal configuration is within normal limits. A moderate to large sized hiatal hernia is suspected. There are no consolidating opacities or pleural effusions. There is no pneumothorax. The osseous structures are within normal limits for the patient's age. IMPRESSION: 1. The heart size is normal. 2. The lungs are clear. 3. Moderate to large sized hiatal hernia suspected. History of Present Illness Malini is a 66 year old female who was at home cooking dinner yesterday when she had onset of left arm pain that radiates up to her left jaw. She felt like her heart was pounding and like she was going to pass out. This lasted for about 15 minutes and she did feel a little diaphoretic with this episode as well. She has had a stress test in the past but it was several years ago but she has never had a heart cath. She does have a sister who had bypass surgery in her 30s Objective Vital Signs Vital signs Vital Signs 12/11/16 12/11/16 07:19 07:24 Temp 96.3 Pulse 63 62 Resp 14 B/P 141/78 Pulse Ox 98 O2 Delivery Room Air Telemetry Rhythm: Sinus Rhythm Height (Feet): 5 Height (Inches): 4.00 Weight (Kilograms): 67.500 General Alert, Orientated x 3, Cooperative ENMT (Brief) mucosa moist Neck (Brief) NOT FOUND: JVD, carotid bruits Respiratory (Brief) clear all lawler, equal bilaterally, NOT FOUND: rales, wheezes Cardiovascular (Brief) regular rate, regular rhythm, NOT FOUND: click, gallop, murmur, pedal edema, rub Abdomen (Brief) BS normo active x4, soft, NOT FOUND: tender Integumentary (Brief) dry, pink, warm Psychiatric (Brief) alert, attentive, oriented Laboratory Laboratory Laboratory Tests 12/10/16 18:50 Laboratory Tests 12/10/16 18:50 EKG SR, HR 75 Medications Current Medications Sodium Chloride (Normal Saline IV) 1,000 ml @ 100 mls/hr Q10H ONCE IV Last administered on 12/10/16t 21:02; Start 12/10/16 at 20:30; Stop 12/11/16 at 06:29 ; Status DC Acetaminophen (Tylenol Regular Strength) 650 mg Q4H PRN PO PAIN; Start at 00:45 Nitroglycerin (Nitrostat) 0.4 mg Q5MIN PRN SL CHEST PAIN; Start 12/11/16 at 01: 00 Ondansetron HCl (Zofran) 4 mg Q6H PRN IM NAUSEA &/OR VOMITING; Start 12/11/16 at 01:00 Hospital Course Serial troponin level are negative, no further cardiac complaints, no further palpitations. Dismiss to home with follow up appointment for 24H Holter monitor and schedule outpatient stress test Problems: (1) Chest pain Status: Acute (2) Mixed hyperlipidemia Status: Chronic (3) Hypothyroidism Status: Chronic Code Status Full Code Home Meds Active Scripts Ubidecarenone (Coenzyme Q10) 200 Mg Capsule, 100 MG PO BID for 30 Days, #30 CAP Prov:LENA KILGORE DEVELOPMENTAL WRITING INSTRUCTOR 12/11/16 Nitroglycerin (Nitrostat) 0.4 Mg Tablet, 0.4 MG SL Q5MIN Y for CHEST PAIN for 25 Days, #25 TAB Prov:LENA KILGORE DEVELOPMENTAL WRITING INSTRUCTOR 12/11/16 Atorvastatin Calcium (Lipitor) 40 Mg Tablet, 40 MG PO HS for 30 Days, #30 TAB 11 Refills Prov:LENA KILGORE DEVELOPMENTAL WRITING INSTRUCTOR 12/11/16 Reported Medications Aspirin/Acetaminophen/Caffeine (Excedrin Extra Strength Caplet) 1 Each Tablet, 1 TAB PO Q4H Y for PAIN 12/10/16 Aspirin (Aspir 81) 81 Mg Tablet.dr, 81 MG PO QOD 12/10/16 Ferrous Sulfate (Iron) 325 Mg Capsule.er, 325 MG PO QOD 12/10/16 Multivitamin (Multivitamins) 1 Each Tablet, 1 TAB PO DAILY 12/10/16 Omeprazole (Omeprazole) 20 Mg Capsule.dr, 20 MG PO ACB 12/10/16 Levothyroxine Sodium (Levothyroxine Sodium) 50 Mcg Tablet, 50 MCG PO ACB 12/10/16 Discharge Disposition Dismiss to home in care of self in good and stable condition. RX for Co Q 10 100mg BID and Atorvastatin 40mg QHS printed. Follow up appointment on 01/01/17 at 9:30 for 24H Holter monitor and schedule outpatient stress test. Copies To 1: CARSON ESPINOZA HOSSEIN MD 12/17/16 1421: Hospital Course Home Meds Active Scripts Ubidecarenone (Coenzyme Q10) 200 Mg Capsule, 100 MG PO BID for 30 Days, #30 CAP Prov:LENA KILGORE APRN 12/11/16 Nitroglycerin (Nitrostat) 0.4 Mg Tablet, 0.4 MG SL Q5MIN Y for CHEST PAIN for 25 Days, #25 TAB Prov:LENA KILGORE APRN 12/11/16 Atorvastatin Calcium (Lipitor) 40 Mg Tablet, 40 MG PO HS for 30 Days, #30 TAB 11 Refills Prov:MAGUI,LENA Delgadillo APRN 12/11/16 Reported Medications Aspirin/Acetaminophen/Caffeine (Excedrin Extra Strength Caplet) 1 Each Tablet, 1 TAB PO Q4H Y for PAIN 12/10/16 Aspirin (Aspir 81) 81 Mg Tablet.dr, 81 MG PO QOD 12/10/16 Ferrous Sulfate (Iron) 325 Mg Capsule.er, 325 MG PO QOD 12/10/16 Multivitamin (Multivitamins) 1 Each Tablet, 1 TAB PO DAILY 12/10/16 Omeprazole (Omeprazole) 20 Mg Capsule.dr, 20 MG PO ACB 12/10/16 Levothyroxine Sodium (Levothyroxine Sodium) 50 Mcg Tablet, 50 MCG PO ACB 12/10/16 Discharge Disposition After examining the patient I agree with the above assessment. I am involved in the formulation of the patient's plan of care. Copies To 1: CARSON ESPINOZA AMY M APRN Dec 11, 2016 14:32 TAVO MALLORY MD Dec 17, 2016 14:21
[2016-12-11] MEDS ORDERED: UBID200C13 PO (14:37)
[2016-12-11] MEDS ORDERED: ATOR40TA PO (14:37)
[2016-12-11] MEDS ORDERED: NITR0.4T SL (14:37)
--- NOTE | 2016-12-11 14:58 | ECHOF ---
ECHOCARDIOGRAM REPORT DATE OF PROCEDURE December 11, 2016 This is a two-dimensional echo with spectral Doppler, color-flow and M-mode. It was obtained in a patient with chest pain. Left atrial dimension is normal. Left ventricle end-diastolic dimension is normal. Left ventricular wall thickness is normal. LV systolic function is normal with ejection fraction of 70%. Right atrium is normal. Right ventricle is normal. Aortic root dimension is normal. Mitral valve is morphologically normal with mild mitral regurgitation. Aortic valve is a trileaflet structure with no stenosis or insufficiency. Tricuspid valve shows mild tricuspid regurgitation with mild pulmonary hypertension with estimated pulmonary artery systolic pressure of 37. Pulmonary valve shows trace of pulmonary insufficiency. There is no pericardial effusion. IMPRESSION 1. Normal LV systolic function with ejection fraction of 70%. 2. Mild mitral regurgitation. 3. Mild tricuspid regurgitation with mild pulmonary hypertension with estimated pulmonary artery systolic pressure of 37. 4. Trace of pulmonary insufficiency. MTDD
[2016-12-11] MEDS ORDERED: PNEUMOCOCCAL 13 VACCINE 0.5 ML SYRINGE IM ONE (15:30)
[2016-12-11] MEDS ORDERED: PNEUMOCOCCAL VAC. ADMIN. CHARGE INJ ONE (15:37)
--- NOTE | 2016-12-11 16:00 | NUR ---
Discharge Patient discharged to home. Instructions gone over with patient, questions answered. Prescriptions x3 given to patient. IV dc'd, cath inatct.
[2016-12-11] MEDS ORDERED: COENZYME Q10 200 MG TABLET PO SCH (21:00)
[2016-12-11] MEDS ORDERED: ATORVASTATIN 40 MG TABLET PO SCH (22:00)
== END 2016-12-11 16:00 | disposition home or self-care (01) ==
LOC: ED 18:26 → EDHOLD 20:26 → MED 21:08
PROVIDERS: ADMIT Internal Medicine Cardiovascular Disease; ATTEND Internal Medicine Cardiovascular Disease
DX: R00.2 Palpitations (principal); R07.9 Chest pain, unspecified; E78.2 Mixed hyperlipidemia; E03.9 Hypothyroidism, unspecified; Z79.82 Long term (current) use of aspirin; Z79.899 Other long term (current) drug therapy; Z82.49 Family history of ischemic heart disease and other diseases of the circulatory system; Z23 Encounter for immunization
CPT/HCPCS: 36415; 71010; 80048; 80061; 81003; 83735; 84443; 84484; 85025; 90732; 93005; 93306; 96360; 96361; 99284; G0009; G0378; J7030; 99218

== ENCOUNTER 2018-02-06 12:13 | Observation (INO) ==
--- NOTE | 2018-02-06 12:34 | History & Physical Report ---
History of Present Illness Date: 02/06/18 (Dr. Patricia Avelar) Chief complaint: Anemia HPI: Malini is a pleasant 67 yo female who was seen today by her PCP. She has a long- standing history of anemia, which is normally managed by taking PO iron. She reports that it is usually well controlled, and her baseline HGB is around 12.2. She is able to donate blood, typically without any difficulty. She has a known large hiatal hernia, and has been maintained on daily omeprazole. She reports that within the last few months, she opted to stop the omeprazole and start using apple cider vinegar in it's place, which she felt was fairly effective. She also takes oral iron, but had gotten out of the habit of taking that as well. [place] travelled out of [place] earlier this year, and noticed more GI upset with eating and felt "yucky"- she attributed this to eating things out of her normal pattern and eating times. She attempted to donate blood around the end of December, and was turned away as her HGB was 7.2. She attempted to increase her intake of iron rich foods, restarted her omeprazole, and tried to take her iron more consistently. She reports that she did notice earlier this week that she was not feeling well , and had a loose stool, after which she felt very exhausted for some time. She endorses this stool was darker than normal, but she attributed this to the iron that she takes. She has continued to feel very fatigued, and has become quite SOA with any activity. She presented to Dr. Avelar's office today, and was found to have a HGB of 5.8 in the office with a BP and HR that were fairly stable. She was directly admitted at her PCP's request for further evaluation and treatment. Malini reports that she has struggled with anemia for at least 10 years. She has undergone hospitalization and endoscopy in the past for this, but that has not occurred in some time. She is noted to have undergone colonoscopy last fall under the care of Dr. Francisco for history of colon polyps, which was fairly benign and did not show evidence of bleeding. I d/w her plan of care and options for evaluating her anemia. She is agreeable to blood transfusion and consult for possible endoscopy. Review of Systems All systems PM: 10-point ROS was reviewed, no additional remarkable complaints except - Constitutional Constitutional: Present: fatigue, weakness - Cardiovascular Cardiovascular: Present: dyspnea on exertion. Absent: chest pain, palpitations , syncope, edema Vascular: Absent: pedal edema - Respiratory Respiratory: Present: dyspnea, dyspnea on exertion. Absent: cough, pain on inspiration, chest congestion - Gastrointestinal Gastrointestinal: Present: diarrhea (Single episode. ), dyspepsia. Absent: abdominal pain, change in stool character, coffee ground emesis, dysphagia, hematemesis, melena, nausea, vomiting - Neurological Neurological: Present: weakness Past Medical History Medical History Updates: Colon Polyps. HLD. Palpitations. Anemia. Arthritis. Depression. GERD/Hiatal hernia. IBS. Hypothyroid, surgical. Diverticulosis. Hyperplastic colon Polyps. negative stress test/EF 70%- Dr. Saavedra Surgical History: Colonoscopy with polypectomy (Maryam). Appy. Katarzyna. Hysterectomy. Thyroidectomy. tonsils Family History: COPD Stroke Cancer Hearing DO Early CAD- sister CHF DM2 HLD HTN Family History: As Above - Social History Smoking status: Former smoker Alcohol intake frequency: a few times a month Does patient use chewing tobacco?: No Medications Home Medications Medication Instructions Recorded Confirmed Type Aspirin/Acetaminophen/Caffeine 1 tab PO Q4H PRN #0 12/10/16 02/06/18 History [Excedrin Extra Strength Caplet] Ferrous Sulfate [Iron] 325 mg PO DAILY #0 12/10/16 02/06/18 History Levothyroxine Sodium 50 mcg PO ACB #0 12/10/16 02/06/18 History Atorvastatin [Lipitor] 40 mg PO HS 30 Days #30 tab 12/11/16 02/06/18 Rx Nitroglycerin [Nitrostat] 0.4 mg SL Q5MIN PRN 25 Days #25 tab 12/11/16 02/06/18 Rx Ubidecarenone/Vit E Acet [Co Q-10 1 tab PO BID 07/24/17 02/06/18 History 100 mg Softgel] Aspirin *EC* [Ecotrin] 1 tab PO DAILY 02/06/18 02/06/18 History Multivitamin [One-A-Day Essential] 1 each PO DAILY 02/06/18 02/06/18 History Omeprazole [Prilosec] 1 cap PO ACB 02/06/18 02/06/18 History Allergies Allergy/AdvReac Type Severity Reaction Status Date / Time No Known Allergies Allergy Verified 02/06/18 15:21 Exam - Constitutional Present: mild distress, well nourished, well developed, average body habitus, cooperative - Routine HEENT Exam Head: Present: normocephalic, atraumatic Eye: Present: EOMI, PERRL, conjunctivae pink (Mildly pale) ENT: Present: mucous membranes moist - Routine Neck Exam Present: supple, trachea midline. Absent: JVD, carotid bruit, thyromegaly, tenderness - Routine Respiratory Exam Present: dyspnea (+RAPHAEL with ambulation noted. ), CTA bilaterally. Absent: rales , rhonchi, wheezes, crackles - Routine Cardiovascular Exam Present: RRR, S1, S2, no murmur - Routine Abdominal Exam Present: soft, normoactive bowel sounds, non distended, non tender. Absent: guarding, mass - Routine Extremities Exam Present: edema (Trace pitting edema of LE bilaterally), non tender, pulses intact - Routine Skin Exam Present: intact, dry, pallor (Skin is mildly sallow), warm - Routine Neurological Exam Present: alert, oriented X3, moving all extremities - Routine Psychiatric Exam Present: normal affect, normal thought process, cooperative, good insight, good judgment Results - Labs CBC & Chem 7: 02/06/18 12:55 02/06/18 12:55 Assessment and Plan (1) Severe anemia Current visit: Yes Status: Acute Assessment and Plan: Impression: Acute on Chronic symptomatic anemia Hx. Iron deficiency Hiatal Hernia HLD Hypothyroidism IBD Diverticulosis Hx. Depression Plan: 02/06/18 Observation- Dr. Null Transfuse-2 units. Check Iron, B12, Folate, LDH Consult Dr. Francisco for possible EGD. Clear liquids. Start PPI IV BID for GI protection until scopes are completed. Assess TSH and routine labs. Fall precautions. Continue home meds as appropriate. Monitor serial labs. Full Code confirmed. DVT Prophylaxis: SCD's GI Prophylaxis: Protonix Resuscitation Status: Full Code - Physician Narrative Physician: Sadaf Null MD Narrative: Date: 02/06/18 Time: 1610 I have independently evaluated and examined this patient. I reviewed the chart, the patient's history, and the AWNING ERECTOR/PA's documented findings as above. We discussed and formulated the assessment and plan as above with additions as below: Mrs. Velez describes excess fatigue over the past 3-4 days although she is known she was anemic she tried to donate blood several weeks earlier and was advised her hemoglobin was low at 7.2. Over this week she had abdominal discomfort most of the night with some associated diarrhea and since that time fatigue and exertional dyspnea have increased significantly. She was found to have hemoglobin of 5.8 in the office today and was referred for hospitalization for management. The patient had a colonoscopy in June [address] Francisco at which time 3 small polyps were identified and removed and a moderate number of diverticuli were seen in the sigmoid region without other abnormalities present. NAD, alert; respirations nonlabored Abdomen soft, nontender, nondistended. Hemoglobin 6.2, MCV 81.7, platelet count 303; chemistries unremarkable. Iron studies/B-12 pending. Hemoglobin 12.4 with MCV November. Transfused tonight; Dr. Francisco consulted and tentatively patient scheduled for EGD tomorrow. Microcytic anemia-almost certainly iron deficient. Discussed with Dr. Avelar, old hospital records reviewed. Hospital Course Summary Disclaimer: The visit summary below is not to be considered part of the above Progress Note. Hospital Course: Impression: Acute on Chronic symptomatic anemia Hx. Iron deficiency Hiatal Hernia HLD Hypothyroidism IBD Diverticulosis Hx. Depression Plan: 02/06/18 Observation- Dr. Null Transfuse-2 units. Check Iron, B12, Folate, LDH Consult Dr. Francisco for possible EGD. Clear liquids. Start PPI IV BID for GI protection until scopes are completed. Assess TSH and routine labs. Fall precautions. Continue home meds as appropriate. Monitor serial labs. Full Code confirmed.
[2018-02-06] MEDS ORDERED: ACETAMINOPHEN 325 MG TABLET PO PRN (12:35)
[2018-02-06] MEDS ORDERED: ONDANSETRON 4 MG/2 ML INJECTION IVP PRN (12:35)
[2018-02-06 13:15] VITALS: BMI 25.4
[2018-02-06] MEDS: PANTOPRAZOLE 40 MG INJECTION IVP SCH (14:55)
--- NOTE | 2018-02-06 14:56 | General Surgery Consult Note ---
Consult date: 02/06/18 Attending Physician: Sadaf Null MD [facility] Medical History Updates: Adenomatous Colon Polyps. HLD. Palpitations. Anemia. Arthritis. Depression. GERD/Hiatal hernia. IBS. Hypothyroid, surgical. Diverticulosis. Hyperplastic colon Polyps. negative stress test/EF 70%- Dr. Saavedra. Chronic anemia Surgical History: 06/2017 Colonoscopy with polypectomy (Maryam). 09/07/2013 Colonoscopy with adenomatous polyps. 12/02/2006 colnoscopy with adenomatous polyps. Appy. Katarzyna. Hysterectomy. Thyroidectomy. tonsils Family History: Father- stroke Mother - HTN Brother - DM Sister - DM - Social History Smoking status: Former smoker second hand exposure: No Substance use type: does not use Alcohol intake: current Alcohol intake frequency: a few times a month Does patient use chewing tobacco?: No Medications Home Medications Medication Instructions Recorded Confirmed Type Aspirin/Acetaminophen/Caffeine 1 tab PO Q4H PRN #0 12/10/16 02/06/18 History [Excedrin Extra Strength Caplet] Ferrous Sulfate [Iron] 325 mg PO DAILY #0 12/10/16 02/06/18 History Levothyroxine Sodium 50 mcg PO ACB #0 12/10/16 02/06/18 History Atorvastatin [Lipitor] 40 mg PO HS 30 Days #30 tab 12/11/16 02/06/18 Rx Nitroglycerin [Nitrostat] 0.4 mg SL Q5MIN PRN 25 Days #25 tab 12/11/16 02/06/18 Rx Ubidecarenone/Vit E Acet [Co Q-10 1 tab PO BID 07/24/17 02/06/18 History 100 mg Softgel] Aspirin *EC* [Ecotrin] 1 tab PO DAILY 02/06/18 02/06/18 History Multivitamin [One-A-Day Essential] 1 each PO DAILY 02/06/18 02/06/18 History Omeprazole [Prilosec] 1 cap PO ACB 02/06/18 02/06/18 History Allergies Allergy/AdvReac Type Severity Reaction Status Date / Time No Known Allergies Allergy Verified 02/06/18 15:21 Review of Systems 10-point ROS: negative except for HPI and the following: - General General: Present: other (fatigue, weakness) - Respiratory Respiratory: Present: difficulty breathing (with exertion) - Gastrointestinal Gastrointestinal: Present: nausea (general dyspepsia), diarrhea (once, ), other (dark stools us on iron supplement) - Neurological Neurological: Present: muscle weakness - Endocrine Endocrine: Present: thyroid problems (surgical hypothyroid) - Vital Signs Last Vital Signs Temp 97.6 F 02/06/18 12:35 Pulse 76 02/06/18 12:35 Resp 14 02/06/18 12:35 BP 107/69 02/06/18 12:35 Pulse Ox 97 02/06/18 12:35 - Laboratory Result Diagrams: 02/06/18 12:55 02/06/18 12:55 General Surgery Results - Results Labs: 02/06/18 12:55 02/06/18 12:55
--- NOTE | 2018-02-06 17:09 | Consultation ---
DATE OF SERVICE 02/06/2018 FINDINGS Mrs. Velez is a 67-year-old female whom I was asked to see as a result of her finding of marked anemia upon laboratory evaluation. The patient states that she has had a history of some mild anemia for multiple years. Patient states that she has been on iron for quite some time as a result of her history for iron deficiency anemia. Patient informs me that her normal hemoglobin is in the 10-12 range. The patient states that on Saturday of this week she began to notice that she was feeling somewhat more weak and tired. The patient states that on Saturday morning she had awakened several times during the night as a result of a component of some abdominal discomfort and the feeling that she needed to "have a bowel movement." The patient stated it is unusual for her to wake up every hour in the morning. Patient states that shortly after this she began to have several loose stools that were fairly dark and tarry in nature. Patient states she did not "think much of it " because her stools tend to be darker with her iron supplementation. The patient states that as the week progressed she began to notice that she was feeling extremely weak and tired and presented to her primary care physician for further evaluation today and was found to be significantly anemic and was subsequently admitted to our facility for further care. Upon questioning the patient in regards any nonsteroidal use the patient states that she does take a low-dose aspirin on a daily basis. Patient states that a week or so ago she was taking a few Excedrin during the week as a result of neck pain. Patient states she did see her chiropractor and had her neck manipulated and stopped taking the Excedrin, for her "neck stopped hurting." Patient states she does have a history for heartburn/reflux. She has been on Prilosec in the past but recently stopped her Prilosec. She states that as long as she watches what she eats she does not have much in the way of heartburn or reflux. She has not been experiencing any element of significant abdominal pain upon questioning. She did undergo a colonoscopy by myself in June of last year and was found to have a couple of benign hyperplastic polyps. PAST MEDICAL HISTORY, PAST SURGICAL HISTORY, MEDICATIONS, ALLERGIES, SOCIAL HISTORY, FAMILY HISTORY, REVIEW OF SYSTEMS Performed by my nurse practitioner, Mike Martinez APRN. PHYSICAL EXAM GENERAL: Mrs. Velez is a 67-year-old female who does not appear to be in acute distress. VITAL SIGNS: Temperature 97.6, pulse 76, respirations 14, blood pressure 107/69 , SAO2 97% on room air. HEENT: Normocephalic. Pupils are equally round and react to light and accommodation. NECK: Supple without lymphadenopathy. CHEST: Clear to auscultation bilaterally. HEART: Regular rate and rhythm. Normal S1 and S2 without gallops, murmurs or clicks. ABDOMEN: Palpation of the abdomen reveals it to be soft and nontender. I do not appreciate any evidence for hepatosplenomegaly nor abnormal masses. EXTREMITIES: Without clubbing, cyanosis, or edema. NEURO: Cranial nerves II-XII grossly intact. Patient is without focal motor or sensory deficits. LABORATORY/RADIOGRAPHIC EVALUATION The patient had a CBC upon admission and her hemoglobin was found to be low at 6.2. White count was 5.4. BMP was obtained and found to be essentially within normal limits. Sodium slightly elevated at 146. Chloride slightly elevated at 111. Iron studies have been obtained and are pending at time of dictation. I did go back and review her prior colonoscopy report from July 25, 2017. She was found to have a couple of polyps within the rectum that were biopsied and removed in their entirety endoscopically and returned as hyperplastic in nature. ASSESSMENT 67-year-old female with clinical history suggestive of upper GI bleed/peptic ulcer disease. Finding of marked anemia upon laboratory evaluation. PLAN I agree with current treatment of this patient. I recommend that we treat her empirically for suspected peptic ulcer disease. She is on Protonix 40 mg IV b.i.d. From a general surgical standpoint I would recommend that we proceed with esophagogastroduodenoscopy for further evaluation. I do not feel that we need to proceed with colonoscopy at this juncture in time. I did discuss with the patient what esophagogastroduodenoscopy entailed and its associated risks which included but were not inclusive of bleeding and/or perforation requiring surgery. Patient understood and agreed with the proposed plan. YAMILEX
[2018-02-06] MEDS ORDERED: NS FLUSH BAG 500ml IV PRN (20:02)
[2018-02-06] MEDS: SALINE FLUSH 10ml SYRINGE IV PRN (20:47)
[2018-02-07] MEDS: SALINE FLUSH 10ml SYRINGE IV PRN (02:52)
[2018-02-07] MEDS: PANTOPRAZOLE 40 MG INJECTION IVP SCH ×2 (02:53→10:08)
[2018-02-07] MEDS ORDERED: POM LEVOTHYROXINE 50 MCG TABLET PO SCH (06:30)
--- NOTE | 2018-02-07 08:09 | General Surgery Progress Note ---
Subjective Patient reports: feels better (since blood transfusions) Narrative: Denies dizziness, chest pain, nausea, abd pain. - Vital Signs Last Vital Signs Temp 96.8 F 02/06/18 23:20 Pulse 76 02/07/18 00:08 Resp 18 02/06/18 23:20 BP 137/69 02/06/18 23:20 Pulse Ox 96 02/06/18 23:20 - Laboratory Result Diagrams: 02/07/18 04:22 02/07/18 04:22 - Normal Exam General: awake, alert, oriented, no acute distress Cardiovascular: regular rate Respiratory: clear bilaterally, equal bilaterally, no labored breathing Abdominal: soft, no guarding, non-tender Psychiatric: normal affect Neurological: CN 2-12 grossly intact Assessment and Plan (1) Severe anemia Current Visit: Yes Status: Acute Plan: after 2 units PRBC HGB 7.8 this am. Plan on EGD about noon today. Hospital Course Summary Disclaimer: The visit summary below is not to be considered part of the above Progress Note. Hospital Course: Impression: Acute on Chronic symptomatic anemia Hx. Iron deficiency Hiatal Hernia HLD Hypothyroidism IBD Diverticulosis Hx. Depression Plan: 02/06/18 Observation- Dr. Null Transfuse-2 units. Check Iron, B12, Folate, LDH Consult Dr. Francisco for possible EGD. Clear liquids. Start PPI IV BID for GI protection until scopes are completed. Assess TSH and routine labs. Fall precautions. Continue home meds as appropriate. Monitor serial labs. Full Code confirmed.
[2018-02-07] MEDS ORDERED: IRON - PHARMACY CONSULT MC ONE (09:49)
[2018-02-07] MEDS ORDERED: LR 1,000 ML IV SCH (10:45)
--- NOTE | 2018-02-07 10:57 | Pharmacy Consult ---
Pharmacy Consult-Iron - Laboratory Information Iron Labs 02/06/18 02/06/18 02/06/18 12:55 12:55 19:37 Hgb 6.2 L 6.7 L Hct 23.6 L Iron 16 L TIBC 461 % Saturation 3 L 02/07/18 04:22 Hgb 7.8 L D Hct 26.7 L D Iron TIBC % Saturation - Consult Information IV IRON CONSULT: Due to nationwide back order of iron dextran, will give Ms Velez 125mg IV infusion of sodium ferric gluconate complex. Thank you.
[2018-02-07] MEDS ORDERED: SODIUM FERRIC GLUC. COMPLEX 125 MG in NS 100 ML IV ONE (11:30)
--- NOTE | 2018-02-07 11:36 | Anesthesia Preoperative Report ---
Anesthesia Preoperative Record - Date and Time Date: 02/07/18 Preoperative Diagnosis: Symptomatic anemia NPO Since Date: 02/06/18 NPO Since Time: 00:00 Allergies/Adverse Reactions: Allergies Allergy/AdvReac Type Severity Reaction Status Date / Time No Known Allergies Allergy Verified 02/06/18 15:21 - Vital Signs Vital Signs: Temperature 96.9 F 02/07/18 08:00 Pulse Rate 70 02/07/18 08:00 Respiratory Rate 14 02/07/18 08:00 Blood Pressure 128/76 02/07/18 08:00 Pulse Oximetry 96 02/07/18 08:00 Height and Weight: Height 1.63 m Weight 65.4 kg Body Mass Index 25.4 - Medications Inpatient Medications: Current Medications Acetaminophen (Tylenol) 325 - 650 mg PO Q5H PRN PRN Reason: Discomfort Lactated Ringer's (Lactated Ringers) 1,000 mls @ 50 mls/hr IV .Q20H TATA Ferric Sodium Gluconate Complex 125 mg/ Sodium Chloride 110 mls @ 110 mls/hr IV O ONE Stop: 02/07/18 12:29 Levothyroxine Sodium (Synthroid) 50 mcg PO ACB [facility] Last Admin: 02/07/18 08:48 Dose: Not Given Ondansetron HCl (Zofran) 4 mg IVP Q6H PRN PRN Reason: Nausea &/or vomiting Pantoprazole Sodium (Protonix Iv) 40 mg IVP BID [facility] Last Admin: 02/07/18 10:08 Dose: 40 mg Sodium Chloride (Normal Saline) 500 ml IV PRN PRN Sodium Chloride (Iv Flush) 10 - 80 ml IV PRN PRN PRN Reason: Flushing Last Admin: 02/07/18 02:52 Dose: 20 ml Home Medications: Home Medications Medication Instructions Recorded Confirmed Type Aspirin/Acetaminophen/Caffeine 1 tab PO Q4H PRN #0 12/10/16 02/06/18 History [Excedrin Extra Strength Caplet] Ferrous Sulfate [Iron] 325 mg PO DAILY #0 12/10/16 02/06/18 History Levothyroxine Sodium 50 mcg PO ACB #0 12/10/16 02/06/18 History Atorvastatin [Lipitor] 40 mg PO HS 30 Days #30 tab 12/11/16 02/06/18 Rx Nitroglycerin [Nitrostat] 0.4 mg SL Q5MIN PRN 25 Days #25 tab 12/11/16 02/06/18 Rx Ubidecarenone/Vit E Acet [Co Q-10 1 tab PO BID 07/24/17 02/06/18 History 100 mg Softgel] Aspirin *EC* [Ecotrin] 1 tab PO DAILY 02/06/18 02/06/18 History Multivitamin [One-A-Day Essential] 1 each PO DAILY 02/06/18 02/06/18 History Omeprazole [Prilosec] 1 cap PO ACB 02/06/18 02/06/18 History Is Patient on Beta Shruthi?: No - Medical History Gastrointestional: Reports: Gastroesophageal Reflux Disease, Hiatal Hernia Neuro/Musculoskeletal: Reports: Other (Occasional right knee pain) Renal/Endocrine: Reports: Thyroid Disease (Hypothyroidism) - Surgical History HEENT Surgeries: Reports: Tonsillectomy (When pt was 5 years old) Cardiac Surgeries/Treatments: Reports: Other (stress test) GI Surgery/Treatments: Reports: Appendectomy (In 1982), Cholecystectomy (In 1999 ), Colonoscopy (Last one in May 2017), EGD ("Several years ago") Surgery/Treatment: DENIES: Dialysis Reproductive Surgery/Treatment: Reports: Hysterectomy (In 1998), Oophorectomy ( In 1981) Anesthesia Reactions: None Hx Family Anesthesia Reaction: No History of Motion Sickness: No - Social History Smoking Status: Former smoker Hx Chewing Tobacco Use: No Second Hand Exposure: No Substance Use Type: does not use Alcohol Intake: current Alcohol Intake Frequency: does not drink - Pertinent Findings Laboratory: CBC and BMP 02/07/18 04:22 02/07/18 04:22 BMP 02/06/18 02/07/18 12:55 04:22 Sodium 146 H 147 H Potassium 3.8 3.7 Chloride 111 H 111 H Carbon Dioxide 23 26 BUN 10.0 7.0 Creatinine 0.6 L 0.7 Glucose 105 96 Calcium 8.9 8.4 Liver Function 02/06/18 Range/Units 12:55 Total Bilirubin 0.20 (0.20-1.30) MG/DL AST 22 (14-36) U/L ALT 27 (1-35) U/L Alkaline Phosphatase 76 (38-126) U/L Albumin 4.1 (3.5-5.0) g/dL Urine 02/06/18 Range/Units 13:55 Urine Color Yellow (YELLOW) Urine Clarity Clear Urine pH 5.5 (5.0-8.0) Ur Specific [place] 1.020 (1.015-1.025) Urine Protein Negative (NEGATIVE) Urine Glucose (UA) Negative (NEGATIVE) EKG: Sinus Rhythm - Physical Exam Respiratory Exam: Present: lungs clear, bilateral breath sounds equal Cardiovascular Exam: Present: regular rate and rhythm - Airway Assessment Mallampati Score: II TMD: 3 Fingerbreadths Neck Extension: fair Overall Assessment: no airway concerns - ASA ASA Score: 2 - Plan Anesthesia: General TIVA - Discussion Discussion: Discussed risks/options/alternatives of anesthesia and questions answered. Patient consents. Nursing pain assessment noted. Attestation Statement: Prior to the delivery of any anesthetic medication, I examined the patient, developed the plan, obtained the patient's consent and discussed the risk and benefits of the procedure with the patient/guardian. - Additional Information Seen by Anesthesia: Yes
[2018-02-07] MEDS ORDERED: LIDOCAINE VISCOUS 2% ORAL LIQUID 15ml ONE (11:37)
[2018-02-07] MEDS ORDERED: ALFENTANIL 1000mcg/2ml INJECTION IVP ONE (12:09)
[2018-02-07] MEDS ORDERED: PROPOFOL 40 ML ONE (12:10)
[2018-02-07] MEDS ORDERED: LIDOCAINE 2% (100mg/5mL) 5ml PF SDV ONE (12:12)
--- NOTE | 2018-02-07 12:31 | Procedure Note ---
- Procedure Date/Time: Date: 02/07/18 Time: 1227 Surgeon: Maryam ASA Score: 2 Proceure: EGD for kari assay, EGD- antrum biopsies - Postoperative EGD Diagnosis Postoperative EGD Diagnosis: Gastritis, Hiatal hernia (large sliding), Other ( Barrett ulcers) - Complications Estimated Blood Loss: See Anesthesia Record. Vital Signs: See Anesthesia and PACU record.
--- NOTE | 2018-02-07 13:29 | Anesthesia Postoperative Note ---
- Date and Time Date: 02/07/18 Time: 13:29 - Status Patient Participated in Evaluation: Patient Participated in Person Vital Signs: Temperature 97.4 F 02/07/18 12:31 Pulse Rate 71 02/07/18 13:25 Respiratory Rate 21 02/07/18 13:25 Blood Pressure 109/57 02/07/18 13:25 Pulse Oximetry 95 02/07/18 13:25 Respiratory Function: Airway Patent Cardiovascular Function: Regular Pulse EKG: Sinus Rhythm Mental Status: Alert and Oriented Pain Intensity: 0 Hydration: Taking PO Fluids Complications During Recover: None Apparent - Follow-Up Instructions Instructions: Per Surgeon
[2018-02-07 14:48] VITALS: RESP 18; TEMP 96.6
[2018-02-07] MEDS ORDERED: SUCRALFATE 1 GM TABLET PO SCH (17:00)
--- NOTE | 2018-02-07 18:00 | Discharge Summary ---
Discharge Information Date of admission: 02/06/18 12:15 Anticipated date of discharge: 02/07/18 Attending Physician: Sadaf Null MD Primary care physician: Lisa Avelar DO Consults: Consulting Provider: Brock Francisco Reason For Exam: ANEMIA - Discharge Diagnosis (1) Severe anemia Status: Acute Acute on Chronic symptomatic anemia Iron deficiency, chronic Hiatal Hernia Hyperlipidemia Hypothyroidism IBD Diverticulosis Hx. Depression - Procedures Procedures: EGD on 02/07/18 revealed gastritis with large sliding hiatal hernia and Barrett ulcers; no active bleeding identified. Biopsies obtained - Laboratory Labs: Admission hemoglobin 6.2 improving to 6.7 following one unit of blood. Serum iron 16, TIBC 461, iron saturation 3%, B-12 656, folic acid >20, TSH 2.21 on admission 02/07/18 04:22 02/07/18 04:22 History of Present Illness HPI: Malini is a pleasant 67 yo female who was seen today by her PCP. She has a long- standing history of anemia, which is normally managed by taking PO iron. She reports that it is usually well controlled, and her baseline HGB is around 12.2. She is able to donate blood, typically without any difficulty. She has a known large hiatal hernia, and has been maintained on daily omeprazole. She reports that within the last few months, she opted to stop the omeprazole and start using apple cider vinegar in it's place, which she felt was fairly effective. She also takes oral iron, but had gotten out of the habit of taking that as well. [place] travelled out of [place] earlier this year, and noticed more GI upset with eating and felt "yucky"- she attributed this to eating things out of her normal pattern and eating times. She attempted to donate blood around the end of December, and was turned away as her HGB was 7.2. She attempted to increase her intake of iron rich foods, restarted her omeprazole, and tried to take her iron more consistently. She reports that she did notice earlier this week that she was not feeling well , and had a loose stool, after which she felt very exhausted for some time. She endorses this stool was darker than normal, but she attributed this to the iron that she takes. She has continued to feel very fatigued, and has become quite SOA with any activity. She presented to Dr. Avelar's office today, and was found to have a HGB of 5.8 in the office with a BP and HR that were fairly stable. She was directly admitted at her PCP's request for further evaluation and treatment. Malini reports that she has struggled with anemia for at least 10 years. She has undergone hospitalization and endoscopy in the past for this, but that has not occurred in some time. She is noted to have undergone colonoscopy last fall under the care of Dr. Francisco for history of colon polyps, which was fairly benign and did not show evidence of bleeding. I d/w her plan of care and options for evaluating her anemia. She is agreeable to blood transfusion and consult for possible endoscopy. Objective Vital signs: Temperature 96.6 F L 02/07/18 13:36 Pulse Rate 73 02/07/18 14:21 Respiratory Rate 18 02/07/18 14:21 Blood Pressure 126/69 02/07/18 14:21 Pulse Oximetry 96 02/07/18 14:21 NAD, alert Respirations nonlabored, good airflow Abdomen soft, nontender, bowel sounds present Height/Weight/BMI: Height 1.63 m Weight 65.4 kg Body Mass Index 25.4 Hospital Course This is a general summary of the patient's hospital course. For more details refer to the complete medical record. Hospital course: Mrs. Velez was hospitalized with symptomatic anemia subsequently demonstrated to be microcytic with iron deficient indices. She was transfused 2 units packed red blood cells with resultant hemoglobin of 7.8. Clinically symptoms improved significantly and she denied dyspnea and was able to ambulate short distances comfortably on 02/07. She is in consultation by Dr. Francisco and underwent EGD on 02/07 revealing presence of a large sliding hiatal hernia, gastritis, and superficial Barrett ulcerations. Testing for H. pylori is pending at discharge. The patient received 125 mg of IV sodium ferric gluconate complex prior to discharge due to iron deficiency and was advised she can decrease frequency of oral iron but should continue to take iron intermittently as I anticipate she will still have some chronic blood loss. Proton pump inhibitor was increased to twice a day dosing and Carafate was added 4 times daily for the next month. Stable for discharge at this time with recommendation that she see Dr. Avelar in one to 2 weeks and have hemoglobin reevaluated at that time. Dr. Francisco and will follow up on Helicobacter testing and gastric biopsies and notify patient of results. Discharge Plan - Discharge Disposition Discharge Date: 02/07/18 Disposition: 01 Discharged Home, Self-Care *Condition: Stable Reason For Visit (Visit label in EMR): Symptomatic anemia - Discharge Medications *Discharge Medications: New RX: Sucralfate [Carafate] 1 gm PO AC30HS #120 tab Continue RX: Atorvastatin [Lipitor] 40 mg PO HS 30 Days #30 tab RX: Multivitamin [One-A-Day Essential] 1 each PO DAILY RX: Levothyroxine Sodium 50 mcg PO ACB #0 RX: Aspirin/Acetaminophen/Caffeine [Excedrin Extra Strength Caplet] 1 tab PO Q4H PRN #0 PRN Reason: PAIN RX: Nitroglycerin [Nitrostat] 0.4 mg SL Q5MIN PRN 25 Days #25 tab PRN Reason: CHEST PAIN RX: Ubidecarenone/Vit E Acet [Co Q-10 100 mg Softgel] 1 tab PO BID Changed RX: Ferrous Sulfate [Iron] 325 mg PO QMWF #1 RX: Omeprazole [Prilosec] 1 cap PO BID #60 cap Discontinued Aspirin *EC* [Ecotrin] 1 tab PO DAILY - Discharge Packet/Instructions *Diet: Regular, soft foods for the next couple of days and then can add other consistencies *Activity: As tolerate *Pain Management/Treatment: Minimize Excedrin Extra Strength because it contains aspirin; Tylenol Extra Strength is preferable to avoid stomach irritation *Wound Care: Not applicable Additional Instructions: Increase omeprazole to 20 mg twice daily for the next month; Dr. Francisco's office will contact you with results of biopsy taken at EGD and you can clarify with him at that time if he wants you to continue taking omeprazole twice daily longer than that. Add Carafate (sucralfate) 4 times daily taking it 30 minutes before meals and at bedtime. Due to location of your ulcers I think you will find it more effective if you dissolve the tablets in about 1-2 tablespoons of water and mix it to form a suspension before taking the medication. Since we gave you IV iron you can decrease the frequency with which you take iron pills to 2-3 times a week. Have Dr. Avelar recheck your hemoglobin in a couple of weeks. It should improve relatively quickly after iron restored if no longer bleeding. *Expected Signs/Symptoms: Mild fatigue and shortness of breath with activity may persist but should be better than they were when you came to the hospital and continue to improve progressively as blood count normalizes. *Notify Physician if: You have black liquid stools, increased nausea or vomiting -especially if you vomit up any blood or liquid that looks like coffee grounds; increasing lightheadedness or if he passed out. *During Business Hours Contact: Dr. Avelar's office *After Business Hours Contact: Call [facility] at [phone] and ask that the on-call physician be paged *Pending Lab/Results: Follow up w/Provider (Dr. Francisco will contact you regarding endoscopy biopsy report and test for Helicobacter) - Referrals/Follow Up *Referrals/Follow Up: Lisa Avelar, [Primary Care Provider] - (1-2 weeks) - Patient Handouts Patient Handouts: Iron Rich Diet (GEN), Gastritis (GEN) - Dismissal Complete Discharge Instructions are:: Complete Physician Narrative - Narrative Attestation Narrative: Date: 02/07/18 Time: [id number]
[2018-02-07 20:23] VITALS: BP 134/76; PULSE 83; O2SAT 97
--- NOTE | 2018-02-08 11:12 | Operative Note ---
DATE OF SERVICE 02/06/2018 SURGEON Brock Francisco MD PREOPERATIVE DIAGNOSES Personal history for progressive anemia, questionable history for melanotic stools. POSTOPERATIVE DIAGNOSES Personal history for progressive anemia, questionable history for melanotic stools, moderate-sized hiatal hernia with associated gastritis and Barrett ulcerations. PROCEDURE Esophagogastroduodenoscopy with biopsies from antrum of stomach for permanent pathology as well as for AGNES assay. ANESTHESIA TIVA BRIEF HISTORY/INDICATIONS Mrs. Velez is a 67-year-old female whom I was recently asked to see in the hospital as a result of the finding of marked anemia upon laboratory evaluation. The patient did have a history of having some questionable melanotic stools earlier this week. She had undergone a colonoscopy in June of last year that was found to be essentially within normal limits. As a result of the indications it was recommended that she undergo esophagogastroduodenoscopy. For completeness please refer to consultation note. FINDINGS Upon upper endoscopy the patient was found to have an 8-10 cm hiatal hernia. At the level the diaphragm the patient was found to have marked gastritis with associated small linear ulcerations suggestive of Barrett ulcerations. No john blood, however, was noted within the stomach or duodenum. Biopsies were obtained from the antrum for permanent pathology as well as for AGNES assay. NARRATIVE OF PROCEDURE After informed consent was obtained the patient was brought to the endoscopy suite and placed in the left lateral decubitus position. Patient subsequently underwent total intravenous anesthesia by the nurse production machine tender at my request. Formal timeout was then completed. An Olympus gastroscope was inserted in the oral hypopharynx and subsequently the esophagus under direct visualization. The gastroscope was advanced through the esophagus, stomach, pylorus, duodenal bulb and second portion of the duodenum. Scope was slowly withdrawn. First and second portions of duodenum were within normal limits. No evidence of duodenitis or ulcerations was noted. Scope was drawn back to the prepyloric region and antrum. Mucosa within this area was found to be moderately erythematous in nature although no john ulcerations were noted nor was there any evidence for old blood upon the surface of mucosa. J-maneuver was then performed. The patient was found to have [id number]-sized hiatal hernia. Scope was left retroflexed and withdrawn back up into the hiatal hernia region. Cardia of the stomach was without noted abnormalities. Fundal portion of the stomach was also somewhat erythematous in nature although no john ulcerations were noted at this location. Scope was allowed to be straightened. One could then see the level the diaphragm. The stomach overlying the anatomic location of the diaphragm was quite edematous and erythematous in nature. One could see a couple of small linear ulcerations at this location suggestive of Barrett ulcers as a result of her [id number]- sized hiatal hernia. Photos were obtained for documentation purposes. Scope was then re-advanced back into the antral portion where biopsies were obtained for permanent pathology as well as for AGNES assay via cold biopsy technique to rule in or rule out the presence of H. pylori. Scope was drawn back to the diaphragm which was at about 40-42 cm from the incisors. Scope was drawn back to the level of the GE junction which was at about 30 cm. Therefore, the patient had about a 10-cm hiatal hernia. Squamocolumnar junction was without marked abnormalities. There was no evidence for marked esophagitis. Endoscopically there was no evidence for Ho's metaplasia. Scope was slowly withdrawn and the remaining esophageal mucosa was found to be within normal limits. The patient tolerated the procedure without difficulty and was sent back to the preop area in stable condition. It is my clinical intuition that the patient likely has a component of iron deficiency anemia as a result of her large hiatal hernia and chronic blood loss as a result of the chronic inflammation present. It is possible that she may have also had an actual bleed from one of these small linear ulcerations overlying her hiatal hernia which has now resolved. It would be my recommendation that we continue with iron supplementation. Would recommend when the patient is discharged to discharge her to home both on Carafate and PPI. Would do Carafate for a one-month duration and then discontinue. Would recommend that she stay on a PPI likely long-term. If her anemia does not improve with the above measures one may then consider repeating her colonoscopy or perhaps Hematology consult. YAMILEX
== END 2018-02-07 19:35 | disposition home or self-care (01) ==
LOC: MED
PROVIDERS: ADMIT Internal Medicine; ATTEND Internal Medicine
PROC: END.EGD (2018-02-07 12:00)